=== PATIENT | female | born 1990 | race Caucasian/White ===

== ENCOUNTER → 2017-12-08 16:31 | Outpatient (CLI) | payer OTHER, SELFPAY ==
--- NOTE | 2017-12-08 16:30 | US_ITS ---
US OB Complete W/ Detail INDICATION: ANATOMY COMPARISON: None TECHNIQUE: Ultrasonographic grayscale and limited Doppler duplex investigation of the FINDINGS: There is a single live intrauterine gestation in cephalic presentation with heart rate of 149 bpm. AYANNA appears normal with the largest pocket measuring 6 x 3 cm. The placenta is located posteriorly and is not low-lying. The cervix is closed. Estimated gestational age by today's measurements is 18 weeks and 5 days (biparietal diameter 4.2 cm, head circumference 16.2 cm, abdominal circumference 13.2 cm, femur length 2.7 cm). Estimated date of delivery is May 06, 2018. Evaluation of the anatomy includes selected views of the spine, unremarkable, normal appearance of the intracranial structures, including lateral ventricles, cerebellum, and cisterna magna. A normal three-vessel cord is documented. Both arms and legs are present. The diaphragm is present. The kidneys are without evidence of hydronephrosis. There is a normal cord insertion. Stomach and urinary bladder are seen. The four-chamber heart is documented. Views of the profile with lip and nose are slightly limited due to cephalic presentation, as far as seen the face appears within normal limits. US/OB Anatomy Scan IMPRESSION: Single live intrauterine gestation with estimated gestational age of 18 weeks and 5 days. heart rate 149 bpm. Posterior placenta, not low-lying. Visualiz anatomy without evidence of anomaly. at 2057 Reported and signed by: Cony Torre MD Electronically Signed: Cony Torre MD at 19:56 EST Tel , Service support ,
== END ==
PROVIDERS: Family Provider Family Medicine; PCP Family Medicine; Visit Provider Obstetrics & Gynecology
DX: Z34.90 Encounter for supervision of normal pregnancy, unspecified, unspecified trimester (principal); Z3A.18 18 weeks gestation of pregnancy
CPT/HCPCS: 76805

== ENCOUNTER 2018-01-12 00:30 | Emergency (ER) | payer OTHER, SELFPAY ==
[2018-01-12 00:31] VITALS: BMI 26.5
--- NOTE | 2018-01-12 00:59 | ED.DCSUM_ITS ---
- ER Visit Summary Date of Service: 01/12/18 Chief Complaint: Thigh abscess History of Present Illness: The patient is a 27 F presenting for evaluation secondary to a thigh abscess. Patient states that this has been present progressively over the course of the last 3-4 days. Painful and warm. Patient states that she is getting a mild amount of drainage from this. Patient's Physician did prescribe her Keflex for this, but she has not yet started the prescription. She states that she cannot get in with her primary care physician until Tuesday, and does report that there is increasing pain associated with this. Patient is 24 weeks . Physical Examination: Physical exam unremarkable except for examination of the patient's left posterior thigh. There is approximately a 1 cm eschar with some fluctuance and surrounding induration. There is about 6 cm of surrounding erythema without any evidence of lymphangitic streaking. Remainder physical otherwise unremarkable. Test Results: None indicated Emergency Department Course and Treatment: Patient presented for evaluation secondary to a thigh abscess. I did a bedside ultrasound which did indicate that there was underlying fluctuance so incision and drainage was indicated. Patient's area was prepped with Betadine and she was draped in sterile fashion. Area was anesthetized using 10 cc of lidocaine via a field block, the patient had adequate analgesia. 11 blade was used and a cruciate incision was made over the area of greatest fluctuance. Moderate amount of fluctuance was expressed, hemostats were used to break up loculations, and the wound was copiously irrigated with saline and left open. Absorbent dressing was placed over the wound, patient was given a first dose of Keflex in the emergency department. Patient will follow up with her primary care physician. Disposition: Discharge Impression: 1. Left thigh abscess with surrounding cellulitis 2. Incision and drainage by ED physician This note was generated with [employer] dictation software. It may contain incorrect words, spelling, and punctuation that were not noted in review of the chart prior to signing ED Disposition - Plan for ED Patient: Disposition: Home or Assisted Living Chief Complaint: Abscess Diagnosis: Abscess of thigh Instructions: ED Abscess IandD Referrals: Richelle Barber DO [Primary Care Provider] - 3-5 Days Additional Instructions: Continue taking keflex
[2018-01-12 01:00] VITALS: BP 118/68; PULSE 83; RESP 16; TEMP 36.9; O2SAT 96
--- NOTE | 2018-01-12 01:05 | NURSING ---
I&D OF ABSCESS TO LEFT POSTERIOR THIGH PERFORMED BY . CONSENT OBTAINED PRIOR TO PROCEDURE. PT NUMBED WITH 1% LIDOCAINE. PROCEDURE PERFORMED WITH NO COMPLICATIONS. PT GIVEN ABX AND D/C'D
[2018-01-12] MEDS: Cephalexin 250 MG Capsule 500 MG PO (01:08)
[2018-01-12 01:10] VITALS: RESP 14
== END 2018-01-12 01:10 | disposition home or self-care (01) ==
LOC: ED 01:04
PROVIDERS: Emergency Provider Emergency Medicine; Family Provider Family Medicine; PCP Family Medicine
DX: O98.812 Other maternal infectious and parasitic diseases complicating pregnancy, second trimester (principal); L02.416 Cutaneous abscess of left lower limb; Z3A.24 24 weeks gestation of pregnancy
CPT/HCPCS: 10060; 99283

== ENCOUNTER → 2018-02-10 15:46 | Outpatient (CLI) | payer OTHER, SELFPAY ==
[2018-02-10 17:13] LABS: Absolute Lymphocyte Count 1.14 X10^3/ul (0.83-4.51); Absolute Neutrophil Count 5.3 X10^3/uL (2.0-7.7); Basophil# 0.02 X10^3/uL; Basophil% 0.3 % (0-1); Eosinophil# 0.08 X10^3/uL; Eosinophils% 1.2 % (0-5); Hematocrit 34.1 % (37-47); Hemoglobin 11.6 g/dl (12.0-15.0); Lymphocyte # 1.14 X10^3/ul (4.0); Lymphocyte % 16.5 % (19-41); Mean Corpuscular Volume 88.1 fL (81-99); Mean Platelet Vol. 10.9 fl (6.2-12.0); Monocyte# 0.35 X10^3/uL; Monocyte% 5.1 % (0-10); Neutrophil % 76.8 % (47-70); Platelet Count 186 K/mm3 (150-450); RBC Distribution Width CV 12.8 % (11.6-14.6); RBC Distribution Width SD 39.7 fl (35.1-43.9); Red Blood Count 3.87 M/mm3 (4.2-5.4); White Blood Count 6.9 K/mm3 (4.4-11.0)
[2018-02-10 17:19] LABS: POSITIVE COUNT NO; POSITIVE DIFFERENTIAL NO; POSITIVE MORPHOLOGY NO
[2018-02-10 17:25] LABS: Glucose Challenge Gest 1H 50g 183 mg/dL (70-140)
== END ==
PROVIDERS: Family Provider Family Medicine; PCP Family Medicine; Visit Provider Obstetrics & Gynecology
DX: Z34.01 Encounter for supervision of normal first pregnancy, first trimester (principal)
CPT/HCPCS: 36415; 82950; 85025; 86850; 86900

== ENCOUNTER → 2018-02-22 07:00 | Outpatient (CLI) | payer OTHER, SELFPAY ==
[2018-02-22 09:00] LABS: Glucose GTT-Gestation. Fasting 81 mg/dL (<105)
[2018-02-22 09:04] LABS: Glucose GTT-Gestational 1 Hr 193 mg/dL (<190)
[2018-02-22 10:26] LABS: Glucose GTT-Gestational 2 Hr 178 mg/dL (<165)
[2018-02-22 10:58] LABS: Glucose GTT-Gestational 3 Hr 147 L (<145)
== END ==
PROVIDERS: Family Provider Family Medicine; PCP Family Medicine; Visit Provider Obstetrics & Gynecology
DX: O99.810 Abnormal glucose complicating pregnancy (principal); Z3A.00 Weeks of gestation of pregnancy not specified
CPT/HCPCS: 36415; 82951; 82952

== ENCOUNTER → 2018-02-24 17:44 | Outpatient (CLI) | payer OTHER, SELFPAY ==
[2018-02-24 21:00] LABS: Chlamydia Trachomatis by PCR Negative (Negative); Neisserai gonorrhoeae by PCR Negative (Negative); Probe Check PASS; Sample Adequacy Control PASS; Specimen Processing Control PASS
== END ==
PROVIDERS: Visit Provider Nurse Practitioner Women's Health
DX: O09.93 Supervision of high risk pregnancy, unspecified, third trimester (principal); Z3A.00 Weeks of gestation of pregnancy not specified
CPT/HCPCS: 87491; 87591

== ENCOUNTER 2018-03-28 17:04 | Outpatient (RCR) | payer OTHER, SELFPAY | END 2018-03-28 23:59 | LOC: DC 17:04 | PROVIDERS: Family Provider Family Medicine; PCP Family Medicine; Visit Provider Obstetrics & Gynecology | DX: O24.419 Gestational diabetes mellitus in pregnancy, unspecified control (principal); Z3A.00 Weeks of gestation of pregnancy not specified; Z71.3 Dietary counseling and surveillance | CPT/HCPCS: 97802; G0108 ==

== ENCOUNTER → 2018-04-04 16:43 | Outpatient (CLI) | payer OTHER, SELFPAY ==
--- NOTE | 2018-04-04 16:40 | US_ITS ---
STUDY: SECOND AND THIRD TRIMESTER OBSTETRICAL ULTRASOUND - LIMITED REASON FOR EXAM: Female, 27 years old. Growth scan. LMP: 07/27/2017 PRIOR ULTRASOUND: None. TECHNIQUE: Transabdominal ultrasound evaluation was performed. FINDINGS: There is a single intrauterine fetus. The fetus is in a cephalic presentation. There is demonstrated cardiac activity with a heart rate of 150 bpm. There is a normal amniotic fluid volume. The largest amniotic fluid pocket measures 6.0 cm. The amniotic fluid index (AYANNA) is 11.5 cm. The placenta is posterior in location and is not low lying. There are Grade 2 placental changes. The cervix measures 1.4 cm in length. There is demonstrated V-shaped funneling of the cervical os foraminal width measures 1.5 cm in length measures 1.4 cm. BIOMETRY: BPD: 8.4 cm: 33 weeks, 5 days HC: 32.2 cm: 36 weeks, 3 days AC: 30.3 cm: 34 weeks, 2 days FL: 6.8 cm: 30 weeks, 0 days Age by LMP: 35 weeks, 6 days. ELEN by LMP: 05/03/2018. age by prior US: 34 weeks, 6 days. ELEN by prior US: 05/10/2018. Estimated weight: 2467 grams, +/- 360 grams, 19 percentile. Gender: Indeterminant US/OB Limited With Biometrics IMPRESSION: 1. Live intrauterine with estimated gestational age by ultrasound 34 weeks and 6 days with estimated date of confinement of 05/10/2018. 2. Cervical length of 1.4 cm with demonstrated funneling, recommend gynecologic monitoring this is may represent an underlying sign of cervical incompetence. Electronically Signed: Emmanuel Liang DO at 22:54 EDT , Service support ,
--- NOTE | 2018-04-04 16:43 | DT_ITS ---
This patient was seen during an EMR downtime April 03, 2018 - April 10, 2018. This patient may have a combination of paper and electronic documentation or all paper documentation. All documentation is viewable within the e-chart portion of [facility] for each patient visit.
[2018-04-07 14:23] LABS: Group B Strep DNA By PCR Negative (Negative); Internal Control PASS; Probe Check PASS; Specimen Processing Control PASS
== END ==
PROVIDERS: Family Provider Family Medicine; PCP Family Medicine; Visit Provider Obstetrics & Gynecology
DX: Z36.89 Encounter for other specified antenatal screening (principal)
CPT/HCPCS: 76816; 87081; 87653

== ENCOUNTER → 2018-04-05 08:00 | Outpatient (CLI) | payer OTHER, SELFPAY ==
--- NOTE | 2018-04-05 08:00 | DT_ITS ---
This patient was seen during an EMR downtime April 03, 2018 - April 10, 2018. This patient may have a combination of paper and electronic documentation or all paper documentation. All documentation is viewable within the e-chart portion of [facility] for each patient visit.
== END ==
PROVIDERS: Family Provider Family Medicine; PCP Family Medicine; Visit Provider Nurse Practitioner Women's Health
DX: Z34.93 Encounter for supervision of normal pregnancy, unspecified, third trimester (principal)

== ENCOUNTER 2018-04-21 10:35 | Outpatient (CLI) | payer OTHER, SELFPAY ==
[2018-04-21 11:09] LABS: Hematocrit 37.4 % (37-47); Hemoglobin 12.6 g/dl (12.0-15.0); Mean Corp Hgb Conc 33.7 g/gl (32-36); Mean Corpuscular Hgb 29.4 pg (27.0-32.0); Mean Corpuscular Volume 87.4 fL (81-99); Mean Platelet Vol. 10.4 fl (6.2-12.0); Platelet Count 147 K/mm3 (150-450); RBC Distribution Width CV 13.2 % (11.6-14.6); RBC Distribution Width SD 42.1 fl (35.1-43.9); Red Blood Count 4.28 M/mm3 (4.2-5.4)
[2018-04-21 11:10] VITALS: BMI 29.8
[2018-04-21 11:11] LABS: Scan Indicated on CBC? Y/N NO
--- NOTE | 2018-04-28 02:43 | OB.TRI.NOTE ---
History of Present Illness Date of Service: 04/21/18 Was patient seen by the physician?: No Reason For Visit: R/O LABOR Date of Service: 04/21/18 Allergies SEAFOOD Allergy (Uncoded 04/21/18 10:06) Swelling - Pertinent Past Medical History Medical History: Past Medical History (Last Reviewed 04/27/18 @ 16:09 by Peggy Mendoza) Polycystic disease, ovaries NST - FHR Rate Baby A Baseline: 125 Variability:: Moderate Accelerations:: 15 x 15 Decelerations:: None NST Reactive:: Yes FHR Category:: Category I Uterine Activity:: irregular Impression/Plan false labor reactive nst dc home
== END 2018-04-21 12:50 | disposition home or self-care (01) ==
LOC: WPOUT 10:40 → WP 10:40
PROVIDERS: Family Provider Family Medicine; PCP Family Medicine; Visit Provider Obstetrics & Gynecology
DX: O47.9 False labor, unspecified (principal); Z3A.00 Weeks of gestation of pregnancy not specified
CPT/HCPCS: 59025; 59050; 85027; 99218; G0378

== ENCOUNTER 2018-04-28 05:24 | Inpatient (IN) | payer OTHER, SELFPAY ==
[2018-04-28 03:55] VITALS: BMI 30.1
[2018-04-28 06:05] LABS: Hematocrit 38.4 % (37-47); Hemoglobin 13.3 g/dl (12.0-15.0); Mean Corp Hgb Conc 34.6 g/gl (32-36); Mean Corpuscular Volume 86.5 fL (81-99); Mean Platelet Vol. 10.7 fl (6.2-12.0); Platelet Count 194 K/mm3 (150-450); RBC Distribution Width CV 12.7 % (11.6-14.6); RBC Distribution Width SD 39.2 fl (35.1-43.9); Red Blood Count 4.44 M/mm3 (4.2-5.4); White Blood Count 11.9 K/mm3 (4.4-11.0)
[2018-04-28 06:06] LABS: Scan Indicated on CBC? Y/N NO
[2018-04-28 06:15] LABS: Bedside Glucose 98 mg/dL (70-110)
[2018-04-28] MEDS: Ondansetron 4 MG/2 ML Vial IV (06:42)
[2018-04-28] MEDS: Lactated Ringers 1,000 ML 50 ML IV ×2 (06:43→10:17)
[2018-04-28] MEDS: Nalbuphine 10 MG/ML Ampul IV (08:07)
[2018-04-28] MEDS: 0.9% Saline Lock 10 ML Syringe IV ×2 (08:15→15:00)
[2018-04-28 08:20] LABS: Bedside Glucose 120 mg/dL (70-110)
--- NOTE | 2018-04-28 08:40 | HP.PCM_ITS ---
- Problem List (1) Genital HSV Status: Acute Qualifiers: Comment: acyclovir (2) Contraception management Status: Acute Qualifiers: Comment: IUD 6 wk PP (3) Supervision of high risk in third trimester Status: Acute Comment: PRR ELEN 05/12/19 girl Elvin (4) Gestational diabetes Status: Acute Qualifiers: Comment: growth us at 36 weeks, diabetic education, start diet and testing (5) Need for rhogam due to Rh negative mother Status: Acute Comment: rhogam prn and at 28 weeks (6) screening encounter Status: Acute Comment: Normal NT reviewed by KEVAN History Date of Admission: 04/28/18 Final ELEN: 05/03/18 Gestational age: 39 Weeks and 2 Days History of this : This is a 27 year-old, G1, P0 at 39 weeks gestational age presents IAL 5 cm. she has had GDMA1 in the Medical History: Medical History (Last Reviewed 04/27/18 @ 16:09 by Peggy Mendoza) Polycystic disease, ovaries E28.2 Allergies SEAFOOD Allergy (Uncoded 04/21/18 10:06) Swelling Home Medications: Home Medications Citalopram [Celexa] 40 mg PO DAILY 12/15/15 vitamin,calcium,xpyagulb-sjcm-ndnmv acid tablet 1 tab PO QDAY 12/23/17 blood sugar diagnostic strips See Dose Instructions .ROUTE .MEDSUPPLY #100 ea blood-glucose meter See Dose Instructions .ROUTE .MEDSUPPLY #1 ea 02/23/18 Acyclovir 400 mg PO BID 04/28/18 Smoking Status: Former smoker Alcohol: None Number of Fetus(es): 1 Heart Tracinmoderate variability reactive no decels TOCO Analysis: q2-4 History Past Pregnancies: Past Pregnancies Delivery Date Name GA/Weeks Outcome Route Weight Gender Labor Length Anesthesia Delivery Location Provider FOB Labs: Mom's Labs & Results 04/28/18 04/28/18 04/28/18 05:45 05:45 05:45 WBC 11.9 H RBC 4.44 Hgb 13.3 Hct 38.4 MCV 86.5 MCH 30.0 MCHC 34.6 RDW 12.7 RDW Differential 39.2 Plt Count 194 MPV 10.7 POC Glucose Blood Type B NEGATIVE Antibody Screen TNP NEGATIVE 06/29/18 06/29/18 06:10 08:13 WBC RBC Hgb Hct MCV MCH MCHC RDW RDW Differential Plt Count MPV POC Glucose 98 120 H Blood Type Antibody Screen Course Did the patient receive Yes care? Labs Blood Type: B RH: NEGATIVE RPR/VDRL/Syphilis Nonreactive Rubella status Immune HbSAg Negative Date Done: 11/15/17 Chlamydia Negative Gonorrhea Negative HIV/AIDS Non-Reactive Group B Strep: Negative Current Obstetrical History Gestational Diabetes Yes: diet controlled Incompetent Cervix No Infertility No IUGR No Macrosomia No Hypertension/Pre-eclampsia No Placenta Previa/Abruption No PTL/PROM No Uterine anomaly No Oligohydramnios No Polyhydramnios No Multiple gestation No Past Medical History Asthma No Diabetes No Hypertension No Heart disease No Mitral valve prolapse No Neurologic/Seizure disorder/ No Migraines Kidney disease No Liver disease No Varicosities No Clotting disorders/Hx of DVT No Thyroid Dysfunction No Other medical diseases No Psychiatric disorders No Major trauma No Abnormal PAP smear No Sleep apnea No Mammogram in the last 2 years No Medications Taken During Dose/Freq.: [Clindamycin] 300 mg / TID Last Date/Time of Medication pt unsure - pt states took for 3 days before Taken: [Keflex] switched to clindamycin Last Date/Time of Medication pt unsure - states was a 10 day Taken: [Clindamycin] Reason for taking medication [ abcess on the back of left thigh Keflex] Reason for taking medication [ abcess on the back of left thigh Clindamycin] Social History Marital Status: Alleged father Elvin Hx Smoking Yes Smoking Status Former smoker Expected Infant Delivery Method: Spontaneous Vaginal Review of Systems Constitutional: Denies: Fever, Malaise Eyes: Denies: Blurred vision, Vision Change HEENT: Denies: Head Aches, Visual Changes Cardiovascular: Denies: Chest Pain, Palpitations Respiratory: Denies: Cough, Shortness of Breath, Wheezing Gastrointestinal: Denies: Abdominal Pain, Diarrhea, Nausea, Vomiting Genitourinary: Denies: Dysuria, Hematuria Musculoskeletal: Denies: Joint Pain, Muscle pain Skin: Denies: Lesions, Rash Neurological: Denies: Blurred vision, Focal weakness, Headaches Psychiatric: Denies: Anxiety, Depression Endocrine: Denies: Heat/ Cold Intolerance Hematologic/ Lymphatic: Denies: Easy Bruising, Easy Bleeding Physical Exam General: Alert, Cooperative, No apparent distress HEENT: Atraumatic, Normocephalic. Negative for: Thyromegaly, Lymphadenopathy Cardiovascular: Regular rate Lungs: Normal air movement Abdomen: Soft, Non Tender, Gravid Neurological: Deep Tendon Reflexes 2+/4 and Symmetrical, Neuro grossly intact. Negative for: Clonus [employer]: Normal external genitalia. Negative for: Vulvar lesions Estimated gestational size: Appropriate for gestational size Presentation: Cephalic Assessment/Plan All Active Problems (Last Reviewed 04/27/18 @ 16:09 by Peggy Mendoza) Genital HSV (Acute) Contraception management (Acute) Supervision of high risk in third trimester (Acute) Gestational diabetes (Acute) Segmental and somatic dysfunction of pelvic region (Acute) Segmental and somatic dysfunction of sacral region (Acute) Segmental and somatic dysfunction of lumbar region (Acute) Need for rhogam due to Rh negative mother (Acute) screening encounter (Acute) Abnormal glucose affecting (Resolved) Supervision of normal (Resolved) This is a 27 year-old, at 39 weeks gestational age IAL plan exp management gdma1- q 1 hour blood sugars gbs neg hsv positive no active lesions, has been on suppression
[2018-04-28 09:36] LABS: Bedside Glucose 116 mg/dL (70-110)
[2018-04-28] MEDS: proMETHazine 25 MG/ML Syringe IV (09:46)
[2018-04-28] MEDS: fentaNYL-bupivacaine (epidural) 100 ML BAG EPIDURAL (10:25)
[2018-04-28 10:51] LABS: Bedside Glucose 130 mg/dL (70-110)
[2018-04-28 11:51] LABS: Bedside Glucose 123 mg/dL (70-110)
[2018-04-28 12:45] LABS: Bedside Glucose 129 mg/dL (70-110)
[2018-04-28] MEDS: Oxytocin 30 units/NS 500 ml 30 UNITS/500 ML IV.SOLN 334 UNITS IV (13:26)
--- NOTE | 2018-04-28 13:33 | PCM.OB.VAG ---
- Problem List (1) Genital HSV Status: Acute Qualifiers: Comment: acyclovir (2) Contraception management Status: Acute Qualifiers: Comment: IUD 6 wk PP (3) Supervision of high risk in third trimester Status: Acute Comment: PRR ELEN 05/03/19 girl Elvin (4) Gestational diabetes Status: Acute Qualifiers: Comment: growth us at 36 weeks, diabetic education, start diet and testing (5) Need for rhogam due to Rh negative mother Status: Acute Comment: rhogam prn and at 28 weeks (6) screening encounter Status: Acute Comment: Normal NT reviewed by KEVAN Vaginal Delivery Maternal Presentation: Active Labor IAL Amniotic Membrane Rupture Type: Artificial Amniotic Fluid Description: Clear Final ELEN: 05/03/18 Gestational age: 39 Weeks and 2 Days Date of Procedure: 04/28/18 Pre-Operative Diagnosis: ial Post-Operative Diagnosis: same Surgery/ Procedure Performed: Spontaneous Vaginal Delivery Type of Anesthesia: Epidural Description of Procedure: Patient began pushing and delivered the head in the OSMANI presentation. The head was delivered atraumatically and a loose nuchal cord ?1 was identified and easily reduced over the infant's head. The anterior and posterior shoulders delivered without complication followed by the rest of the and the was placed on the maternal abdomen. Delayed cord clamping was employed for approximately 60 seconds. Cord was clamped and cut and gentle traction was applied to the cord and the placenta delivered spontaneously immediately following it was noted to be intact with three-vessel cord. The perineum and vagina were inspected and noted to have no laceration. EBL was 200 cc. Patient and infant tolerated delivery well. Presentation: PETRA Placental Delivery Description: Spontaneous Placenta Disposition: [facility]
[2018-04-28] MEDS: Oxytocin 30 units/NS 500 ml 30 UNITS/500 ML IV.SOLN 167 UNITS IV (13:56)
[2018-04-28 15:16] LABS: Bedside Glucose 124 mg/dL (70-110)
[2018-04-28 20:42] VITALS: BP 106/63; PULSE 87; RESP 18; TEMP 36; O2SAT 97
[2018-04-29 00:50] VITALS: BP 118/75; PULSE 92; RESP 16; TEMP 35.9; O2SAT 98
[2018-04-29] MEDS: Naproxen 250 MG Tablet PO (03:16)
[2018-04-29 05:00] VITALS: BP 114/67; PULSE 94; RESP 18; TEMP 36; O2SAT 96
[2018-04-29 08:00] VITALS: BP 109/69; PULSE 78; RESP 16; TEMP 36.7; O2SAT 100
[2018-04-29 08:56] LABS: Bedside Glucose 85 mg/dL (70-110)
[2018-04-29] MEDS: Citalopram 40 MG TABLET PO (10:16)
[2018-04-29 13:00] VITALS: BP 119/70; PULSE 79; RESP 17; TEMP 36.7; O2SAT 98
[2018-04-29 21:35] VITALS: BP 111/61; PULSE 87; RESP 16; TEMP 36.1
[2018-04-29] MEDS: Senna/Docusate Sodium 1 Tablet PO (21:42)
--- NOTE | 2018-04-30 01:26 | PCM.PN.OB ---
Subjective: later entry- patient seen 04/29 at 8:40 doing well no CP SOB N V tolerating po - Physical Exam General: Alert, Oriented x3 Vital Signs Temp Pulse Resp BP Pulse Ox 96.9 F L 87 16 111/61 98 04/29/18 21:35 04/29/18 21:35 04/29/18 21:35 04/29/18 21:35 04/29/18 13:00 Oxygen Delivery Method Room Air Weight: 164 lb 12.8 oz Body Mass Index (BMI) 30.1 Intake and Output for Last 24 Hours 04/28/18 04/29/18 04/30/18 23:59 23:59 23:59 Output Total 1150 / 1150 Balance -1150 / -1150 POC Glucose 04/29/18 08:46 POC Glucose 85 Medical Necessity - Tobacco Use Smoking Status: Former smoker Assessment/Plan All Active Problems (Last Reviewed 04/27/18 @ 16:09 by Peggy Mendoza) Genital HSV (Acute) Contraception management (Acute) Supervision of high risk in third trimester (Acute) Gestational diabetes (Acute) Need for rhogam due to Rh negative mother (Acute) screening encounter (Acute) Abnormal glucose affecting (Resolved) Segmental and somatic dysfunction of lumbar region (Resolved) Segmental and somatic dysfunction of pelvic region (Resolved) Segmental and somatic dysfunction of sacral region (Resolved) Supervision of normal (Resolved) s/p routine care gdma1 FBS WNL
[2018-04-30 02:40] VITALS: BP 117/74; PULSE 72; RESP 16; TEMP 35.9
--- NOTE | 2018-04-30 06:44 | PCM.PN.OB ---
Subjective: doing well no complaints - Physical Exam General: Alert, Oriented x3 Vital Signs Temp Pulse Resp BP Pulse Ox 96.7 F L 72 16 117/74 98 04/30/18 02:40 04/30/18 02:40 04/30/18 02:40 04/30/18 02:40 04/29/18 13:00 Oxygen Delivery Method Room Air Weight: 164 lb 12.8 oz Body Mass Index (BMI) 30.1 Intake and Output for Last 24 Hours 04/28/18 04/29/18 04/30/18 23:59 23:59 23:59 Output Total 1150 / 1150 Balance -1150 / -1150 POC Glucose 04/29/18 08:46 POC Glucose 85 Medical Necessity - Tobacco Use Smoking Status: Former smoker Assessment/Plan All Active Problems (Last Reviewed 04/27/18 @ 16:09 by Peggy Mendoza) Genital HSV (Acute) Contraception management (Acute) Supervision of high risk in third trimester (Acute) Gestational diabetes (Acute) Need for rhogam due to Rh negative mother (Acute) screening encounter (Acute) Abnormal glucose affecting (Resolved) Segmental and somatic dysfunction of lumbar region (Resolved) Segmental and somatic dysfunction of pelvic region (Resolved) Segmental and somatic dysfunction of sacral region (Resolved) Supervision of normal (Resolved) s/p routine care gdma1 dc home
--- NOTE | 2018-04-30 06:44 | PCM.DCVAG ---
Discharge Diet: No Restrictions Discharge Activity: Return to Normal Activity, May not drive while taking narcotic pain medications., May Shower May resume sexual activity in: 4-6 weeks Call your doctor if your incision/area has: Continuous Slow Oozing, Sudden Increased Bleeding, Increased Pain/ Swelling, Increased Redness, Foul Smelling Discharge Additional Instructions: If you experience any of the following, contact your healthcare provider. Bleeding that soaks a pad every hour for 2 hours Fever 100.4 or higher Unrelieved incision or abdominal pain Swelling, redness, discharge or bleeding from your incision or episiotomy site Your incision begins to separate Problems urinating (including inability to urinate or burning while urinating). Visual changes Severe headache Flu-like symptoms Pain or redness in one of both of your breasts Pain, warmth, tenderness or swelling in your legs, especially the calf area Frequent nausea and vomiting Symptoms of depression or anxiety If you experience any of the following, call 911 or go to the nearest Emergency Room. Chest pain Problems breathing Seizure activity Partial or complete paralysis of a body part, slurred speech, weakness or drooping of the face, or a sudden inability to walk or hold your balance Allergies/Adverse Reactions: Allergies SEAFOOD Allergy (Uncoded 04/21/18 10:06) Swelling Medications to take at Discharge Citalopram [Celexa] 40 mg PO DAILY 12/15/15 vitamin,calcium,wzplwgsz-blzu-blhlr acid tablet 1 tab PO QDAY 12/23/17 blood sugar diagnostic strips See Dose Instructions .ROUTE .MEDSUPPLY #100 ea 02/23/18 blood-glucose meter See Dose Instructions .ROUTE .MEDSUPPLY #1 ea 02/23/18 Acyclovir 400 mg PO BID 04/28/18 Please Follow Up With: Tahira Vasquez MD - [phone] When: Call to make an appointment with your doctor in 6 weeks. If you had elevated Blood pressure or 4th degree laceration you will need to be seen in 2 weeks. Primary Care Physician: Richelle Barber DO [Primary Care Provider] -
--- NOTE | 2018-04-30 06:45 | DCINST_ITS ---
Discharge Diet: No Restrictions Discharge Activity: Return to Normal Activity, May not drive while taking narcotic pain medications., May Shower May resume sexual activity in: 4-6 weeks Call your doctor if your incision/area has: Continuous Slow Oozing, Sudden Increased Bleeding, Increased Pain/ Swelling, Increased Redness, Foul Smelling Discharge Additional Instructions: If you experience any of the following, contact your healthcare provider. * Bleeding that soaks a pad every hour for 2 hours * Fever 100.4 or higher * Unrelieved incision or abdominal pain * Swelling, redness, discharge or bleeding from your incision or episiotomy site * Your incision begins to separate * Problems urinating (including inability to urinate or burning while urinating) . * Visual changes * Severe headache * Flu-like symptoms * Pain or redness in one of both of your breasts * Pain, warmth, tenderness or swelling in your legs, especially the calf area * Frequent nausea and vomiting * Symptoms of depression or anxiety If you experience any of the following, call 911 or go to the nearest Emergency Room. * Chest pain * Problems breathing * Seizure activity * Partial or complete paralysis of a body part, slurred speech, weakness or drooping of the face, or a sudden inability to walk or hold your balance Allergies/Adverse Reactions: Allergies SEAFOOD Allergy (Uncoded 04/21/18 10:06) Swelling Medications to take at Discharge Citalopram [Celexa] 40 mg PO DAILY 12/15/15 vitamin,calcium,qindiqed-vjpl-kgxco acid tablet 1 tab PO QDAY 12/23/17 blood sugar diagnostic strips See Dose Instructions .ROUTE .MEDSUPPLY #100 ea blood-glucose meter See Dose Instructions .ROUTE .MEDSUPPLY #1 ea 02/23/18 Acyclovir 400 mg PO BID 04/28/18 Please Follow Up With: Tahira Vasquez MD - [phone] When: Call to make an appointment with your doctor in 6 weeks. If you had elevated Blood pressure or 4th degree laceration you will need to be seen in 2 weeks. Primary Care Physician: Richelle Barber DO [Primary Care Provider] -
--- NOTE | 2018-04-30 07:30 | NURSING ---
report given to Amy CROWLEY
[2018-04-30 08:30] VITALS: BP 112/71; PULSE 84; RESP 16; TEMP 36.9; O2SAT 96
[2018-04-30 08:43] VITALS: BP 112/71; PULSE 84; RESP 16; TEMP 36.9; O2SAT 96
== END 2018-04-30 08:45 | disposition home or self-care (01) | DRG 774 ==
LOC: WPOUT 05:30
PROVIDERS: Admitting Provider Obstetrics & Gynecology; Family Provider Family Medicine; PCP Family Medicine; Visit Provider Obstetrics & Gynecology
DX: O24.429 Gestational diabetes mellitus in childbirth, unspecified control (principal); O98.32 Other infections with a predominantly sexual mode of transmission complicating childbirth; O69.81X0 Labor and delivery complicated by cord around neck, without compression, not applicable or unspecified; A60.00 Herpesviral infection of urogenital system, unspecified; M99.03 Segmental and somatic dysfunction of lumbar region; M99.04 Segmental and somatic dysfunction of sacral region; M99.05 Segmental and somatic dysfunction of pelvic region; E28.2 Polycystic ovarian syndrome; Z87.891 Personal history of nicotine dependence; Z91.013 Allergy to seafood; Z3A.39 39 weeks gestation of pregnancy; Z37.0 Single live birth
CPT/HCPCS: 59025; 59050; 82962; 85027; 86850; 86900; 99218; J7120; A4216; G0378; J2405

== ENCOUNTER → 2019-08-24 17:01 | Outpatient (CLI) | payer OTHER, SELFPAY ==
[2019-08-24 14:19] VITALS: BMI 28.0
[2019-08-30 15:20] LABS: HPV APTIMA, High Risk Negative (Negative)
== END ==
PROVIDERS: Family Provider Family Medicine; PCP Family Medicine; Referring Provider Obstetrics & Gynecology; Visit Provider Obstetrics & Gynecology
DX: Z12.4 Encounter for screening for malignant neoplasm of cervix (principal)
CPT/HCPCS: 87624; 88175; G0145

== ENCOUNTER → 2020-10-04 12:38 | Outpatient (CLI) | payer OTHER, SELFPAY | PROVIDERS: PCP Family Medicine; Visit Provider Physician Assistant Medical | DX: Z11.59 Encounter for screening for other viral diseases (principal) | CPT/HCPCS: 87426 ==

== ENCOUNTER → 2020-10-28 12:44 | Outpatient (CLI) | payer OTHER, SELFPAY ==
[2020-10-28 08:55] VITALS: BMI 22.4
[2020-11-01 09:57] LABS: HPV APTIMA, High Risk Negative (Negative)
== END ==
PROVIDERS: PCP Family Medicine; Visit Provider Nurse Practitioner Women's Health
DX: Z12.4 Encounter for screening for malignant neoplasm of cervix (principal)
CPT/HCPCS: 87624; 88175; G0145

== ENCOUNTER → 2021-01-22 12:15 | Outpatient (CLI) | payer OTHER, SELFPAY ==
[2020-10-28 08:55] VITALS: BMI 22.4
[2021-01-22 14:22] LABS: hCG Titer Quant., Serum 125 mIU/mL (1-3)
== END ==
PROVIDERS: PCP Family Medicine; Referring Provider Nurse Practitioner Women's Health; Visit Provider Nurse Practitioner Women's Health
DX: N91.2 Amenorrhea, unspecified (principal)
CPT/HCPCS: 36415; 84702

== ENCOUNTER → 2021-01-24 11:50 | Outpatient (CLI) | payer OTHER, SELFPAY ==
[2020-10-28 08:55] VITALS: BMI 22.4
[2021-01-24 13:05] LABS: hCG Titer Quant., Serum 191 mIU/mL (1-3)
== END ==
PROVIDERS: PCP Family Medicine; Referring Provider Nurse Practitioner Women's Health; Visit Provider Nurse Practitioner Women's Health
DX: N91.2 Amenorrhea, unspecified (principal)
CPT/HCPCS: 36415; 84702

== ENCOUNTER → 2021-01-26 12:10 | Outpatient (CLI) | payer OTHER, SELFPAY ==
[2020-10-28 08:55] VITALS: BMI 22.4
[2021-01-26 14:14] LABS: hCG Titer Quant., Serum 311 mIU/mL (1-3)
== END ==
PROVIDERS: PCP Family Medicine; Referring Provider Nurse Practitioner Women's Health; Visit Provider Nurse Practitioner Women's Health
DX: Z34.90 Encounter for supervision of normal pregnancy, unspecified, unspecified trimester (principal)
CPT/HCPCS: 36415; 84702

== ENCOUNTER → 2021-01-28 11:59 | Outpatient (CLI) | payer OTHER, SELFPAY ==
[2020-10-28 08:55] VITALS: BMI 22.4
[2021-01-28 13:06] LABS: hCG Titer Quant., Serum 754 mIU/mL (1-3)
== END ==
PROVIDERS: PCP Family Medicine; Referring Provider Nurse Practitioner Women's Health; Visit Provider Nurse Practitioner Women's Health
DX: Z34.90 Encounter for supervision of normal pregnancy, unspecified, unspecified trimester (principal)
CPT/HCPCS: 36415; 84702

== ENCOUNTER → 2021-02-25 12:02 | Outpatient (CLI) | payer OTHER, SELFPAY ==
[2021-02-25 10:14] VITALS: BMI 23.1
[2021-02-25 12:34] LABS: Amphetamine Urine VISTA NEGATIVE (<1000 ng/mL); Barbiturate Urine VISTA NEGATIVE (< 200 ng/mL); Benzodiazepine Urine VISTA NEGATIVE (< 200 ng/mL); Cocaine Urine VISTA NEGATIVE (< 300 ng/mL); Ecstacy Urine VISTA NEGATIVE (< 500 ng/mL); Methadone Urine VISTA NEGATIVE (< 300 ng/mL); PCP Urine VISTA NEGATIVE (< 25 ng/mL); THC Urine VISTA NEGATIVE (< 50 ng/mL); Vista UDS pH Range 7
[2021-02-27 04:08] LABS: Chlamydia By Nucleic Acid AMP Negative (Negative)
[2021-02-27 12:53] LABS: Gonococcus By Nucleic Acid AMP Negative (Negative)
== END ==
PROVIDERS: PCP Family Medicine; Referring Provider Obstetrics & Gynecology; Visit Provider Obstetrics & Gynecology
DX: Z34.80 Encounter for supervision of other normal pregnancy, unspecified trimester (principal)
CPT/HCPCS: 80307; 87086; 87088; 87491; 87591

== ENCOUNTER → 2021-03-09 07:27 | Outpatient (CLI) | payer OTHER, SELFPAY ==
[2021-02-25 10:14] VITALS: BMI 23.1
[2021-03-09 07:55] LABS: Absolute Lymphocyte Count 1.99 X10^3/uL (0.83-4.51); Basophil# 0.05 X10^3/uL; Basophil% 0.6 % (0-1); Eosinophils% 1.3 % (0-5); Hematocrit 40.1 % (37-47); Hemoglobin 13.6 g/dL (12.0-15.0); Lymphocyte # 1.99 X10^3/ul (0.83-4.51); Lymphocyte % 25.5 % (19-41); Mean Corp Hgb Conc 33.9 g/dL (32-36); Mean Corpuscular Hgb 30.3 pg (27.0-32.0); Mean Corpuscular Volume 89.3 fL (81-99); Mean Platelet Vol. 10.2 fl (6.2-12.0); Monocyte# 0.66 X10^3/uL; Monocyte% 8.5 % (0-10); NRBC Flagged by Analyzer 0 % (0-5); Neutrophil # 4.96 X10^3/uL (2.7-7.7); Neutrophil % 63.7 % (47-70); Platelet Count 210 K/mm3 (150-450); RBC Distribution Width CV 12.4 % (11.6-14.6); RBC Distribution Width SD 40.4 fl (35.1-43.9); Red Blood Count 4.49 M/mm3 (4.2-5.4); White Blood Count 7.8 K/mm3 (4.4-11.0)
[2021-03-09 08:14] LABS: Glucose Challenge Gest 1H 50g 111 mg/dL (70-140)
[2021-03-09 08:40] LABS: NATERA MAILED SPECIMEN
[2021-03-09 09:14] LABS: HIV - WCH Non-Reactive (Nonreactive); Hepatitis B Surface Antigen Non-Reactive (Nonreactive); Hepatitis C Antibody Non-Reactive (Nonreactive); Rubella IgG Reactive (Nonreactive); Syphilis Antibodies Non-reactive
== END ==
PROVIDERS: PCP Family Medicine; Referring Provider Obstetrics & Gynecology; Visit Provider Obstetrics & Gynecology
DX: Z34.81 Encounter for supervision of other normal pregnancy, first trimester (principal)
CPT/HCPCS: 82950; 85025; 86703; 86762; 86780; 86803; 86850; 86900; 86901; 87340

== ENCOUNTER → 2021-05-06 07:55 | Outpatient (CLI) | payer OTHER, SELFPAY ==
[2021-02-25 10:14] VITALS: BMI 23.1
[2021-04-20 08:06] VITALS: BMI 23.1
--- NOTE | 2021-05-06 07:56 | US_ITS ---
STUDY: SECOND AND THIRD TRIMESTER OBSTETRICAL ULTRASOUND REASON FOR EXAM: Female, 30 years old anatomy scan LMP: 12/22/2020. TECHNIQUE: Transabdominal and Transvaginal TECHNICAL QUALITY: Adequate. PRIOR ULTRASOUND: None. FINDINGS: There is a single intrauterine fetus. The fetus is in a cephalic presentation. There is demonstrated cardiac activity with a heart rate of 144 bpm. There is a normal amniotic fluid volume. The largest amniotic fluid pocket measures 7.8 cm x 2.9 cm. The amniotic fluid index (AYANNA) is within normal limits. The placenta is fundal and posterior in location. There are Grade 0 placental changes. The cervix measures 3.6 cm in length. The bilateral adnexal regions are normal. BIOMETRY: BPD: 4.3 cm: 19 weeks, 0 days HC: 16.12 cm: 18 weeks, 6 days AC: 13.86 cm: 19 weeks, 1 days FL: 2.7 cm: 18 weeks, 1 days CI: 78% FL/BPD: 63% FL/HC: FL/AC: 19% HC/AC: 1.16 age by current US: 18 weeks, 5 days. ELEN by current US: 10/02/2021. Estimated weight: 260 grams, +/- 39 grams, 22 %. Age by LMP: 19 weeks, 2 days. ELEN by LMP: 09/28/2021. ANATOMY: Gender: Female Cranium: Normal lateral ventricles. Normal choroid plexus. Normal cerebellum. Normal cisterna magna. Normal face, nose and lips. Chest: Normal 4-chamber heart. Abdomen/Pelvis: Normal diaphragm. Normal stomach. Normal abdominal wall. Normal cord insertion. Normal 3 vessel cord. Normal kidneys. Normal bladder. Spine: Normal cervical spine. Normal thoracic spine. Normal lumbar spine. Normal sacrum. Extremities: Normal bilateral upper extremities. Normal bilateral lower extremities. IMPRESSION: Single live uterine gestation with a mean gestational age of 18 weeks and 5 days. Electronically Signed: Pierce Woodard MD at 10:59 EDT , Service support , STUDY: FIRST TRIMESTER OBSTETRICAL ULTRASOUND REASON FOR EXAM: Female, 30 years old. Cervical length measurement. TECHNIQUE: Transvaginal TECHNICAL QUALITY: Adequate. PRIOR ULTRASOUND: None. FINDINGS: The cervical length measures 3.6 cm. US/OB Anatomy Scan IMPRESSION: Cervical length measures 3.6 cm. Electronically Signed: Pierce Woodard MD at 11:00 EDT , Service support ,
== END ==
PROVIDERS: PCP Family Medicine; Referring Provider Obstetrics & Gynecology; Visit Provider Obstetrics & Gynecology
DX: Z34.80 Encounter for supervision of other normal pregnancy, unspecified trimester (principal); Z3A.18 18 weeks gestation of pregnancy
CPT/HCPCS: 76805; 76817

== ENCOUNTER → 2021-07-07 08:40 | Outpatient (CLI) | payer OTHER, SELFPAY ==
[2021-07-07 09:34] LABS: Absolute Lymphocyte Count 1.64 X10^3/uL (0.83-4.51); Absolute Neutrophil Count 4.7 X10^3/uL (2.0-7.7); Basophil# 0.04 X10^3/uL; Basophil% 0.6 % (0-1); Eosinophil# 0.11 X10^3/uL; Eosinophils% 1.5 % (0-5); Hematocrit 36.5 % (37-47); Hemoglobin 12.3 g/dL (12.0-15.0); Lymphocyte # 1.64 X10^3/ul (0.83-4.51); Lymphocyte % 22.8 % (19-41); Mean Corp Hgb Conc 33.7 g/dL (32-36); Mean Corpuscular Hgb 30.1 pg (27.0-32.0); Mean Corpuscular Volume 89.5 fL (81-99); Mean Platelet Vol. 9.9 fl (6.2-12.0); Monocyte# 0.64 X10^3/uL; Monocyte% 8.9 % (0-10); NRBC Flagged by Analyzer 0 % (0-5); Neutrophil % 65.5 % (47-70); Platelet Count 190 K/mm3 (150-450); RBC Distribution Width CV 12.9 % (11.6-14.6); RBC Distribution Width SD 42.3 fl (35.1-43.9); Red Blood Count 4.08 M/mm3 (4.2-5.4); White Blood Count 7.2 K/mm3 (4.4-11.0)
== END ==
PROVIDERS: PCP Family Medicine; Referring Provider Nurse Practitioner Women's Health; Visit Provider Nurse Practitioner Women's Health
DX: Z34.92 Encounter for supervision of normal pregnancy, unspecified, second trimester (principal); Z3A.25 25 weeks gestation of pregnancy
CPT/HCPCS: 36415; 85025; 86850; 86900; 86901

== ENCOUNTER 2021-07-27 18:53 | Emergency (ER) | payer OTHER, SELFPAY ==
[2021-07-27 18:53] VITALS: BP 131/75; PULSE 126; RESP 20; TEMP 36.6; O2SAT 94; BMI 28.3
--- NOTE | 2021-07-27 19:06 | EKG12_ITS ---
Test Reason : CP Blood Pressure : / mmHG Vent. Rate : 108 BPM Atrial Rate : 108 BPM P-R Int : 124 ms QRS Dur : 088 ms QT Int : 350 ms P-R-T Axes : 036 054 034 degrees QTc Int : 469 ms Sinus tachycardia Otherwise normal ECG Confirmed by MILES LEWIS, HIREN ([id number]), video tape editor MAGDALENA CUEVA ([id number]) on 07/29/2021 11:35:39 AM Referred By: AMAN Confirmed By:HIREN AQUINO MD
--- NOTE | 2021-07-27 19:08 | EX.ED.DYSGE1 ---
HPI History of Present Illness Chief Complaint: General Illness Informant: patient Onset/Context/Timing Onset: Weeks Context: Gradual Onset Timing: Intermittent Current Severity: Mild Maximum Severity: Mild Narrative Narrative: 31-year-old female G2, P1 currently 31 weeks . States that she has had some shortness of breath the last 2 weeks. The last 2 days she has had sore throat and mild headache and viral type of symptoms. She has a nonproductive cough. She denies any hemoptysis. She is never had a DVT or PE. Her risk factors would include her current and recent travel to and from [place] about a month ago. She denies any calf pain. She denies any chest pain. Patient was vaccinated for Covid several months ago. Prior similar symptoms: No Recent Illness/Hospitalization: No PFSH PFS Medical History Acne Genital HSV History of tetanus, diphtheria, and acellular pertussis booster vaccination (Tdap) Polycystic disease, ovaries Home Medications citalopram 40 mg PO DAILY 12/15/15 [History Last Taken 04/27/18 08:00] multivitamin no.47-iron fum 27 mg-folate no.1 1 mg-dha 300 mg capsule cap PO 02/17/21 [History Last Taken Unknown] ramelteon 8 mg tablet 8 mg PO QHS 02/17/21 [History Last Taken Unknown] mometasone 0.1 % topical ointment 1 applic TOPICAL DAILY #45 g 03/23/21 [Rx Last Taken Unknown] Allergy/AdvReac Type Severity Reaction Status Date / Time cephalexin [From Keflex] Allergy unknown Verified 07/27/21 18:57 SEAFOOD Allergy Swelling Uncoded 07/27/21 18:57 Social History adopted: No household members: family housing: house number of children: 1 current occupational status: employed current occupation: - [employer] Smoking Status: Former smoker second hand exposure: No alcohol intake: never substance use type: does not use seatbelt use: always do you feel safe at home: Yes additional social history: 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 Sore throat. Shortness of breath. Review of Systems ROS Unobtainable: Denies due to encephalopathy Constitutional Constitutional ED: Reports chills; Denies fever(s) Eyes Eyes: Denies change in vision ENT ENT ED: Reports sore throat; Denies ear pain Cardiovascular Cardiovascular: Denies chest pain Respiratory/Chest Respiratory/Chest: Reports cough and dyspnea Gastrointestinal Gastrointestinal: Denies abdominal pain, diarrhea, nausea or vomiting Genitourinary Genitourinary ED: Denies dysuria Musculoskeletal Musculoskeletal: Denies myalgias Integumentary Denies rash Neurologic Neurologic: Denies headache(s) Psychiatric Psychiatric: Denies depression Endocrine Endocrinology: Denies polyuria Allergic/Immunologic Allergic/Immunologic ED: Denies urticaria EXAM Physical Exam Narrative Exam Narrative: 31-year-old female vital signs blood pressure 131/75 pulse ox 94% on room air no hypoxia as she is tachycardic at 126 afebrile. She does not look septic or toxic. HEENT exam normal. Moist remembers. Neck nontender no lymphadenopathy. No JVD. Lungs clear to auscultation bilaterally. Heart tachycardic rate at 120 no murmur. Abdomen soft nontender. No peritoneal signs. Gravid nontender uterus. Moving all 4 extremities. Trace edema both lower extremities. Neurologically she is awake alert with no focal motor deficits. Const Vital Signs: 07/27/21 18:53 07/27/21 19:22 07/27/21 19:31 Temperature 97.8 F 97.8 F Temperature Source Temporal Temporal Pulse Rate 126 H 120 H Respiratory Rate 20 H 22 H Respiratory Effort Short of Breath Blood Pressure 131/75 H 109/79 Blood Pressure Mean 93 89 Pulse Ox 94 98 Oxygen Delivery Method Room Air Room Air 07/27/21 21:25 Temperature Temperature Source Pulse Rate 110 H Respiratory Rate 16 Respiratory Effort Blood Pressure Blood Pressure Mean Pulse Ox Oxygen Delivery Method Positive well nourished and well developed; Negative for obese, cachectic, contractures or unkempt General Appearance ED: well developed and NAD; Negative for unkempt, cachectic, contractures, cyanotic or diaphoretic Nutritional Appearance: Negative for cachectic or obese HEENT Reports moist mucous membranes Negative for trauma or tenderness Eyes PERRL and EOMs intact bilaterally Neck no lymphadenopathy, supple and no JVD General: Negative for tenderness Chest Wall inspection of chest normal and palpation of chest normal Resp normal respiratory effort and clear to auscultation bilaterally Effort and Inspection: Negative for pain with movement Auscultation: Negative for rales, rhonchi or wheezes Cardio regular rhythm, S1 normal heart sound, S2 normal heart sound and no murmurs Rate: tachycardic GI normal to inspection, nondistended, normoactive bowel sounds, non-tender, non-distended and no masses GI Narrative: Gravid uterus. Inspection: Negative for abdominal distention Auscultation: normoactive bowel sounds Palpation: soft; Negative for tender, guarding or rebound tenderness present Back/Spine no CVA tenderness General Back: Negative for CVA tenderness Extremity normal to inspection General Extremety ED: Yes edema; Negative for tenderness General Extremity: edema Neuro oriented x3 and CN's II-XII intact bilaterally Sensorium / Orientation: alert; Negative for orientation impaired, lethargic or stuporous Motor Exam: strength 5/5 throughout Psych mental status grossly normal Appearance: Negative for unkempt Attitude: No agitated Mood & Affect: Negative for depressed or tearful Skin no rashes or lesions noted and no wounds MDM MDM MDM Narrative Medical decision making narrative: 31-year-old female 31 weeks with shortness of breath and URI symptoms. Was Covid vaccinated. Does have gestational diabetes. Undergo work-up including labs, chest x-ray and D-dimer. Multiple exams patient is doing well at 9:30 PM. Her heart rates come down she is feeling improved. She was treated with IV fluids. She had not discussed all of her test results. The only thing pending is her PCR Covid test. It would not change her disposition she will be discharged home. Lab Data Attestation: I reviewed the patient's lab results. Lab results narrative: CBC shows a white 11.7. Hemoglobin 12.6. Electrolytes show a gap of 7 normal creatinine. Glucose 100. D-dimer is elevated 1.9 for a CTA is being obtained of the chest. Chest x-ray and CTA of the chest are unremarkable. Labs: Laboratory Results - last 24 hr 07/27/21 07/27/21 07/27/21 19:02 19:02 19:02 WBC 11.7 H RBC 4.16 L Hgb 12.6 Hct 37.1 MCV 89.2 MCH 30.3 MCHC 34.0 RDW Std Deviation 41.9 RDW Coeff of Chacha 12.8 Plt Count 191 MPV 10.1 Immature Gran % (Auto) 0.500 Neut % (Auto) 82.0 H Lymph % (Auto) 9.2 L [place] % (Auto) 7.6 Eos % (Auto) 0.4 Baso % (Auto) 0.3 Absolute Neuts (auto) 9.6 H Absolute Lymphs (auto) 1.08 Nucleated RBC % 0 D-Dimer Quant (PE/DVT) 1.94 H* Sodium 138 Potassium 3.5 Chloride 109 H Carbon Dioxide 22.0 Anion Gap 7 BUN 5 L Creatinine 0.45 L Estim Creat Clear Calc 140.64 Est GFR (MDRD) Af Amer 207 Est GFR (MDRD) Non-Af 171 BUN/Creatinine Ratio 11.2 Glucose 100 Calcium 8.7 Radiography Chest X-Ray - ED: 1 View, Read by ED Physician, Normal, Heart, Lungs, Mediastinum, Bony Structures and No Acute Disease Diagnostic Testing: Radiology Impression Chest X-Ray 07/27/21 19:18 IMPRESSION: Normal x-ray examination of the chest. Electronically Signed: Jimmy No DO at 19:58 EDT Tel [phone], Service support , Chest CTA 07/27/21 19:54 IMPRESSION: Normal CTA chest examination, without a demonstrated pulmonary embolism or arterial dissection. Electronically Signed: Jimmy No DO at 21:05 EDT Tel [phone], Service support , Portable chest x-ray single view interpreted by myself shows no acute abnormality. No infiltrates. No fluid. Rhythm Strip Rhythm Strip: Sinus Tach Rate: 108 Ectopy: None EKG Initial EKG: Attestation: I personally reviewed and interpreted this EKG as follows: Interpretation: Sinus Rhythm, No Acute Injury Pattern and Sinus Tachycardia Comments: Sinus tachycardia rate of 108 no acute signs of SD or ischemia. Prior EKG tracings: not available for review Discharge Plan Triage Chief Complaint: General Illness ED Provider: Lester Finch Dx/Rx/DC Orders Clinical Impression: , Viral syndrome Instructions: ED Viral Syndrome (Adult) Prescriptions: No Action PNV-DHA 27 mg iron-1 mg -300 mg capsule PO RF: 0 ramelteon 8 mg tablet 8 mg PO QHS RF: 0 mometasone 0.1 % ointment 1 applic topical DAILY Qty: 45 RF: 3 citalopram 40 MG tablet 40 mg PO DAILY RF: 0 Primary Care Provider: Da Link Referrals: Da Link [Primary Care Provider] - 3-5 Days if not improving Activity Restrictions/Additional Instructions: Plenty of fluids and rest. Tylenol as needed. 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 Your test looked well. Your chest x-ray and CT of your chest showed no infiltrates and no PE. Your PCR Covid test is still pending. Disposition Disposition: Home, Self Care
[2021-07-27 19:15] LABS: Absolute Lymphocyte Count 1.08 X10^3/uL (0.83-4.51); Absolute Neutrophil Count 9.6 X10^3/uL (2.0-7.7); Basophil# 0.04 X10^3/uL; Basophil% 0.3 % (0-1); Eosinophil# 0.05 X10^3/uL; Eosinophils% 0.4 % (0-5); Hematocrit 37.1 % (37-47); Hemoglobin 12.6 g/dL (12.0-15.0); Lymphocyte # 1.08 X10^3/ul (0.83-4.51); Lymphocyte % 9.2 % (19-41); Mean Corpuscular Hgb 30.3 pg (27.0-32.0); Mean Corpuscular Volume 89.2 fL (81-99); Mean Platelet Vol. 10.1 fl (6.2-12.0); Monocyte# 0.89 X10^3/uL; Monocyte% 7.6 % (0-10); NRBC Flagged by Analyzer 0 % (0-5); Neutrophil # 9.58 X10^3/uL (2.7-7.7); Platelet Count 191 K/mm3 (150-450); RBC Distribution Width CV 12.8 % (11.6-14.6); RBC Distribution Width SD 41.9 fl (35.1-43.9); Red Blood Count 4.16 M/mm3 (4.2-5.4); White Blood Count 11.7 K/mm3 (4.4-11.0)
--- NOTE | 2021-07-27 19:18 | RAD_ITS ---
STUDY: X-RAY CHEST REASON FOR EXAM: Female, 31 years old. Chest pain, Shield abd TECHNIQUE: Frontal view COMPARISON: None. FINDINGS: The lungs are clear and expanded. There is no demonstrated pleural abnormality. Normal size heart. Normal mediastinum and darrell. Normal visualized pulmonary arteries. Normal visualized aortic arch and descending thoracic aorta. Normal visualized thoracic spine. Normal visualized ribs, clavicles, and shoulders. There is no demonstrated abnormality of the visualized soft tissue structures of the upper abdomen. RAD/Chest 1 View (Portable) IMPRESSION: Normal x-ray examination of the chest. Electronically Signed: Jimmy No DO at 19:58 EDT Tel [phone], Service support ,
[2021-07-27 19:22] VITALS: BP 109/79; PULSE 120; RESP 22; TEMP 36.6; O2SAT 98
[2021-07-27 19:29] LABS: Anion Gap 7 (5-15); BUN 5 mg/dL (7-18); BUN/Creat Ratio 11.2 RATIO (10-20); Calcium,Total 8.7 mg/dL (8.5-10.1); Chloride 109 mmol/L (98-107); Creatinine, Serum 0.45 mg/dL (0.55-1.02); EST Glomerular Filtration Rate 171 mL/min (>60); Est Glom Filt Rate - Afr Amer 207 mL/min (>60); Estimated Creatinine Clearance 140.64 ml/min; Glucose 100 mg/dL (74-106); Potassium 3.5 mmol/L (3.5-5.1); Sodium Level 138 mmol/L (136-145)
[2021-07-27] MEDS: 0.9% Normal Saline 1,000 ML 1000 ML IV (19:31)
[2021-07-27 19:41] LABS: D-Dimer Quantitative (DVT/PE) 1.94 FEU/ug/m (0.27-0.49)
--- NOTE | 2021-07-27 19:54 | CT_ITS ---
STUDY: CTA CHEST REASON FOR EXAM: Female, 31 years old. dyspnea. . Elevated d-dimer RADIATION DOSAGE (If Supplied By Facility): CTDIvol = ( 10.61 ) mGy, DLP = ( 272.27 ) mGycm TECHNIQUE: The examination was performed with the intravenous administration of IV 100mL [id number]-370. Post-processing of the angiographic images was performed, with multiplanar reformation and 3D reconstruction. Individualized dose optimization techniques were used for this CT. COMPARISON: None. FINDINGS: Normal enhancement of the main pulmonary artery and right and left pulmonary arteries. Normal enhancement of the bilateral peripheral pulmonary arteries. There is no demonstrated pulmonary embolism. Normal thoracic aorta and visualized great vessels. There is no demonstrated aortic dissection. Normal heart and pericardium. Normal mediastinum. Normal hilar regions. Normal visualized trachea and bronchi. The lungs are well expanded. Normal pulmonary parenchyma. Normal pleura. Normal chest wall structures. Normal osseous structures. Normal visualized upper abdomen. CT/CTA Chest W/WO Contrast IMPRESSION: Normal CTA chest examination, without a demonstrated pulmonary embolism or arterial dissection. Electronically Signed: Jimmy No DO at 21:05 EDT Tel [phone], Service support ,
[2021-07-27 21:25] VITALS: PULSE 110; RESP 16
== END 2021-07-27 22:03 | disposition home or self-care (01) ==
PROVIDERS: Emergency Provider Emergency Medicine; PCP Family Medicine
DX: O98.513 Other viral diseases complicating pregnancy, third trimester (principal); B34.9 Viral infection, unspecified; E28.2 Polycystic ovarian syndrome; Z3A.31 31 weeks gestation of pregnancy; Z79.51 Long term (current) use of inhaled steroids; Z87.891 Personal history of nicotine dependence
CPT/HCPCS: 71045; 71275; 80048; 85025; 85379; 87635; 93005; 96360; 99284; J7030; Q9967; U0005; A4216; U0003

== ENCOUNTER → 2021-08-03 09:12 | Outpatient (CLI) | payer OTHER, SELFPAY ==
--- NOTE | 2021-08-03 09:14 | US_ITS ---
INDICATION: non reactive NST EXAMINATION: Ultrasound US Biophysical Profile W/O Nonst TECHNIQUE: Transabdominal pelvic ultrasound was performed. COMPARISON: 05/06/2021. LMP: 12/22/2020. Beta-hCG: Unknown. Provided EGA: None. FINDINGS: INTRAUTERINE GESTATION(s): Single. ESTIMATED GESTATIONAL AGE: 32 weeks ESTIMATED DUE DATE (ELEN): 09/28/2021 HEART MOTION is 148 bpm. AMNIOTIC FLUID INDEX (AYANNA): 10.26 BIOPHYSICAL PROFILE (BPP): 06/07 -- Breathin/2. -- Movement: 2/2. -- Tone: 2/2. --AYANNA: 2/2. PRESENTATION: Cephalic PLACENTA: Fundal. There is no placenta previa or abruption. CERVIX: The cervix is closed. MATERNAL OVARIES: No adnexal masses. FREE FLUID: None. US/Biophysical Prof W/O Non Stres IMPRESSION: Single live intrauterine with heart rate of 148 bpm. Amniotic fluid index (AYANNA): 10.26 Biophysical profile (BPP): 06/07 Electronically Signed: Kwaku Robert MD at 12:14 EDT Tel , Service support ,
== END ==
PROVIDERS: PCP Family Medicine; Referring Provider Obstetrics & Gynecology; Visit Provider Obstetrics & Gynecology
DX: O24.419 Gestational diabetes mellitus in pregnancy, unspecified control (principal); O28.8 Other abnormal findings on antenatal screening of mother; Z3A.00 Weeks of gestation of pregnancy not specified
CPT/HCPCS: 76819

== ENCOUNTER → 2021-08-05 09:59 | Outpatient (CLI) | payer OTHER, SELFPAY ==
--- NOTE | 2021-08-05 10:01 | US_ITS ---
STUDY: SECOND AND THIRD TRIMESTER OBSTETRICAL ULTRASOUND - LIMITED REASON FOR EXAM: Female, 31 years old routine survey LMP: 12/22/2020 PRIOR ULTRASOUND: 08/03/2021 TECHNIQUE: Transabdominal TECHNICAL QUALITY: Adequate. FINDINGS: There is a single intrauterine fetus. The fetus is in a cephalic presentation. There is demonstrated cardiac activity with a heart rate of 139 bpm. There is a normal amniotic fluid volume. The largest amniotic fluid pocket measures 4.6 x 2.7 cm. The amniotic fluid index (AYANNA) is 13.22 cm. The placenta is fundal and right lateral, not low-lying There are Grade 1 placental changes. The cervix measures 3.7 cm in length. BIOMETRY: BPD: 8.2 cm: 33 weeks, 0 days HC: 30.4 cm: 33 weeks, 6 days AC: 28.4 cm: 32 weeks, 3 days FL: 5.9 cm: 30 weeks, 4 days Age by LMP: 32 weeks, 2 days. ELEN by LMP: 09/28/2021. age by prior US: 31 weeks, 5 days. ELEN by prior US: 10/02/2021. age by current US: 32 weeks, 4 days. ELEN by current US: 09/26/2021. Estimated weight: 1889 grams, +/- 276 grams, 32 percentile. US/OB Limited With Biometrics IMPRESSION: Single live intrauterine of 32 weeks, 4 days by current ultrasound with ELEN of 09/26/2021. Heart rate at 139 bpm. No suspicious sonographic findings, normal growth noted since the previous study Electronically Signed: Adolfo Kincaid MD at 12:32 EDT , Service support ,
== END ==
PROVIDERS: PCP Family Medicine; Referring Provider Obstetrics & Gynecology; Visit Provider Obstetrics & Gynecology
DX: O24.419 Gestational diabetes mellitus in pregnancy, unspecified control (principal); Z3A.32 32 weeks gestation of pregnancy
CPT/HCPCS: 76816

== ENCOUNTER → 2021-08-18 | Outpatient (CLI) | payer OTHER, SELFPAY | END | disposition home or self-care (01) | LOC: LABSPEC 16:07 | PROVIDERS: PCP Family Medicine; Referring Provider Nurse Practitioner Women's Health; Visit Provider Nurse Practitioner Women's Health | DX: O26.899 Other specified pregnancy related conditions, unspecified trimester (principal); R10.2 Pelvic and perineal pain; Z3A.00 Weeks of gestation of pregnancy not specified | CPT/HCPCS: 87086; 87088 ==

== ENCOUNTER → 2021-08-31 11:26 | Outpatient (CLI) | payer OTHER, SELFPAY | PROVIDERS: PCP Family Medicine; Referring Provider Obstetrics & Gynecology; Visit Provider Obstetrics & Gynecology | DX: O24.414 Gestational diabetes mellitus in pregnancy, insulin controlled (principal); Z3A.00 Weeks of gestation of pregnancy not specified | CPT/HCPCS: 87081 ==

== ENCOUNTER → 2021-09-02 08:41 | Outpatient (CLI) | payer OTHER, SELFPAY ==
--- NOTE | 2021-09-02 08:47 | US_ITS ---
STUDY: SECOND AND THIRD TRIMESTER OBSTETRICAL ULTRASOUND - LIMITED REASON FOR EXAM: Female, 31 years old routine survey LMP: 12/22/2020 PRIOR ULTRASOUND: 08/05/2021 TECHNIQUE: Transabdominal TECHNICAL QUALITY: Adequate. FINDINGS: There is a single intrauterine fetus. The fetus is in a cephalic presentation. There is demonstrated cardiac activity with a heart rate of 123 bpm. There is a normal amniotic fluid volume. The largest amniotic fluid pocket measures 5.7 cm. The amniotic fluid index (AYANNA) is 16 cm. The placenta is right lateral and fundal, not low-lying There are Grade 2 placental changes. The cervix measures 3.7 cm in length. BIOMETRY: BPD: 8.7 cm: 35 weeks, 2 days HC: 31.6 cm: 35 weeks, 3 days AC: 32.0 cm: 35 weeks, 6 days FL: 6.5 cm: 33 weeks, 3 days Age by LMP: 36 weeks, 2 days. ELEN by LMP: 09/28/2021. age by prior US: 36 weeks, 4 days. ELEN by prior US: 09/26/2021. age by current US: 35 weeks, 1 days. ELEN by current US: 10/07/2021. Estimated weight: 2644 grams, +/- 397 grams, 27 percentile. US/OB Limited With Biometrics IMPRESSION: Single live intrauterine of 35 weeks, 1 day by current study with ELEN of 10/07/2021. No suspicious sonographic findings. However, EGD on current study measures approximately 12 days later than on the previous study Electronically Signed: Adolfo Kincaid MD at 8:51 EDT , Service support ,
== END ==
PROVIDERS: PCP Family Medicine; Referring Provider Obstetrics & Gynecology; Visit Provider Obstetrics & Gynecology
DX: O24.419 Gestational diabetes mellitus in pregnancy, unspecified control (principal); Z3A.00 Weeks of gestation of pregnancy not specified
CPT/HCPCS: 76816

== ENCOUNTER 2021-09-21 06:50 | Inpatient (IN) | payer OTHER, SELFPAY ==
[2021-09-21] VITALS (38 sets, daily range): BP systolic 92–113; BP diastolic 53–73; PULSE 74–100; RESP 18; TEMP 36.3–37.7; O2SAT 94–100; BMI 29.6
--- NOTE | 2021-09-21 07:51 | HP.PCM.OB_ITS ---
HPI - General General Date of Admission: 09/21/21 HPI Narrative CHRISTELLE BERRY, is a 31 F who presents for IOL secondary to gestational diabetes. Maternal Data Information ELEN Calculator 2 Estimated Delivery Date Method Current WG Current Estimate 09/28/21 Ultrasound #1 39w 0d Other Estimates 08/03/21 LMP (Uncertain) 47w 0d PFSH PFSH Medical History Acne Genital HSV History of tetanus, diphtheria, and acellular pertussis booster vaccination (Tdap) Polycystic disease, ovaries Home Medications citalopram 40 mg PO DAILY 12/15/15 [History Last Taken 09/20/21 10:00] multivitamin no.47-iron fum 27 mg-folate no.1 1 mg-dha 300 mg capsule 1 cap PO DAILY 02/17/21 [History Last Taken 09/20/21 20:00] insulin degludec 100 unit/mL (3 mL) subcutaneous pen 10 unit SUBCUT DAILY 08/03/21 [History Last Taken 09/20/21 20:00] acyclovir 400 mg PO BID 09/21/21 [History Last Taken 09/21/21 07:00] mometasone 1 applic TOPICAL DAILY 09/21/21 [History Last Taken 09/20/21 10:00] Allergy/AdvReac Type Severity Reaction Status Date / Time cephalexin [From Keflex] Allergy unknown Verified 09/16/21 08:36 SEAFOOD Allergy Swelling Uncoded 09/16/21 08:36 Social History adopted: No household members: family housing: house number of children: 1 current occupational status: employed 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 Date Name GA/Weeks Outcome Route Bth Weight Infant Gen Labor Lgth Anesthesia Del Locatn Provider FOB 04/28/18 Camdyn 39 live - full term 6lbs 3oz Female 12 hours epidural [facility] KEVAN Elvin Delivery Date: 04/28/18 GDMA KellyPeggy Visit Details Expected Delivery Route/Plan Labor Preferences- CB/BF classes: no labor support person: Elvin labor intervention preferences: none specified pain management options preferred: epidural cut cord/dad catch: yes : yes PP control planned: IUD discussed possible routes of delivery and associated risks: [] special requests: [] Plans covid status: past infection, and vaccinated flu vaccine: 07/20 tdap vaccine: given rhogam: given 07/07 LARC form signed: yes movement and labor precautions reviewed. Problem list reviewed and updated with the most current plan of care details and appropriate orders placed. Relevant counseling for the gestational age provided. Continue routine care and follow up unless otherwise noted in visit notes/problem list details OB Flowsheet Initial Weight: 125 lb Date -?-?-?-?-?-?-?-?-?-?-?-?- EGA Weight BP Urine Prot -?-?-?-?-?-?-?-?-?-?-?-?- Glucose FHR FuHt Pres Dilation -?-?-?-?-?-?-?-?-?-?-?-?- Effaced St Visit Note 02/25/21 -?-?-?-?-?-?-?-?-?-?-?-?- 9w 2d 126 lb 2 oz (+1 lb 2 oz) 120/70 -?-?-?-?-?-?-?-?-?-?-?-?- 163 -?-?-?-?-?-?-?-?-?-?-?-?- GP - CRL 23mm co nsistent ELEN 09/28/21 03/23/21 -?-?-?-?-?-?-?-?-?-?-?-?- 13w 0d 133 lb (+8 lb) 132/84 Negative -?-?-?-?-?-?-?-?-?-?-?-?- Negative 145 -?-?-?-?-?-?-?-?-?-?-?-?- Sm- no vb crampi ng 04/20/21 -?-?-?-?-?-?-?-?-?-?-?-?- 17w 0d 139 lb (+14 lb) 98/56 Negative -?-?-?-?-?-?-?-?-?-?-?-?- Negative 140 -?-?-?-?-?-?-?-?-?-?-?-?- SM- no vb crampi ng 05/18/21 -?-?-?-?-?-?-?-?-?-?-?-?- 21w 0d 142 lb 6 oz (+17 lb 6 oz) 104/60 Negative -?-?-?-?-?-?-?-?-?-?-?-?- Negative 145 -?-?-?-?-?-?-?-?-?-?-?-?- GP - no ctx, LOF , VB, DFM. Anatomy nl. Having a girl! 06/15/21 -?-?-?-?-?-?-?-?-?-?-?-?- 25w 0d 147 lb (+22 lb) 110/70 Negative -?-?-?-?-?-?-?-?-?-?-?-?- Negative 135 25 -?-?-?-?-?-?-?-?-?-?-?-?- SM- no vb lof go od fm no regular ctx some elevated BS so checking 07/07/21 -?-?-?-?-?-?-?-?-?-?-?-?- 28w 1d 152 lb 4 oz (+27 lb 4 oz) 108/62 Negative -?-?-?-?-?-?-?-?-?-?-?-?- Negative 148 27 -?-?-?-?-?-?-?-?-?-?-?-?- MH-No VB, LOF. C BC and T&S today. Tdap given. Will RTO for rhogam. Plans 3hr GTT since prior GDM 07/20/21 -?-?-?-?-?-?-?-?-?-?-?-?- 30w 0d 154 lb (+29 lb) 110/78 Negative -?-?-?-?-?-?-?-?-?-?-?-?- Negative 140 30 -?-?-?-?-?-?-?-?-?-?-?-?- SM- no vb lof go od fm no reuglar ctx BS well controlled with diet 08/03/21 -?-?-?-?-?-?-?-?-?-?-?-?- 32w 0d 153 lb (+28 lb) 122/80 -?-?-?-?-?-?-?-?-?-?-?-?- 140 32 -?-?-?-?--?-?-?-?-?-?-?-?- SM- no vb lof go od fm no regular ctx. she is having horrible URI symptoms and was evaluated for a PE and has had two negative covid tests. discussed OTC jatinder and steroid pack if needed, caitlin haji ordered 08/05/21 -?-?-?-?-?-?-?-?-?-?-?-?- 32w 2d 153 lb (+28 lb) 102/66 -?-?-?-?-?-?-?-?-?-?-?-?- 140 -?-?-?-?-?-?-?-?-?-?-?-?- -NST only reac tive. Medrol dose pack due to continued resp sx 08/12/21 -?-?-?-?-?-?-?-?-?-?-?-?- 33w 2d 116/62 -?-?-?-?-?-?-?-?-?-?-?-?- 130 -?-?-?-?-?-?-?-?-?-?-?-?- MH-NST only reac tive 08/14/21 -?-?-?-?-?-?-?-?-?-?-?-?- 33w 4d 154 lb (+29 lb) 100/64 Negative -?-?-?-?-?-?-?-?-?-?-?-?- Negative 130 -?-?-?-?-?-?-?-?-?-?-?-?- SM- no vb lof go od fm no regular ctx BS reveiwed 08/17/21 -?-?-?-?-?-?-?-?-?-?-?-?- 34w 0d 156 lb 2 oz (+31 lb 2 oz) Negative -?-?-?-?-?-?-?-?-?-?-?-?- Negative -?-?-?-?-?-?-?-?-?-?-?-?- 08/18/21 -?-?-?-?-?-?-?-?-?-?-?-?- 34w 1d 156 lb (+31 lb) Trace -?-?-?-?-?-?-?-?-?-?-?-?- Negative 0 -?-?-?-?-?-?-?-?-?-?-?-?- MH-work in for d ysuria. UA with significant blood. No blood in vagina. Macrobid Rx and culture pending 08/19/21 -?-?-?-?-?-?-?-?-?-?-?-?- 34w 2d 156 lb (+31 lb) 110/82 Negative -?-?-?-?-?-?-?-?-?-?-?-?- Negative 130 -?-?-?-?-?-?-?-?-?-?-?-?- MH-Reactive NST only 08/24/21 -?-?-?-?-?-?-?-?-?-?-?-?- 35w 0d 156 lb (+31 lb) 110/62 Negative -?-?-?-?-?-?-?-?-?-?-?-?- Negative -?-?-?-?-?-?-?-?-?-?-?-?- MH-NST only reac tive 08/26/21 -?-?-?-?-?-?-?-?-?-?-?-?- 35w 2d 157 lb (+32 lb) 105/67 Negative -?-?-?-?-?-?-?-?-?-?-?-?- Negative 150 -?-?-?-?-?-?-?-?-?-?-?-?- -NST only reac tive 08/31/21 -?-?-?-?-?-?-?-?-?-?-?-?- 36w 0d 158 lb (+33 lb) 112/68 Negative -?-?-?-?-?-?-?-?-?-?-?-?- Negative 140 -?-?-?-?-?-?-?-?-?-?-?-?- SM- no vb lof go od fm no regular ctx gbs done 09/02/21 -?-?-?-?-?-?-?-?-?-?-?-?- 36w 2d 159 lb (+34 lb) 114/76 Negative -?-?-?-?-?-?-?-?-?-?-?-?- Negative 140 -?-?-?-?-?-?-?-?-?-?-?-?- -NST only reac tive 09/07/21 -?-?-?-?-?-?-?-?-?-?-?-?- 37w 0d 158 lb (+33 lb) 110/66 Negative -?-?-?-?-?-?-?-?-?-?-?-?- Negative 140 -?-?-?-?-?-?-?-?-?-?-?-?- Sm- no vb lof go od fm regular ctx 09/11/21 -?-?-?-?-?-?-?-?-?-?-?-?- 37w 4d 160 lb (+35 lb) 100/74 Negative -?-?-?-?-?-?-?-?-?-?-?-?- Negative 135 Cephalic 2 -?-?-?-?-?-?-?--?-?-?-?-?- 80 -2 JV- no lof , vaginal bleeding, or dec fm. diabetes well controlled with insulin and monitored by endo. 39 week IOL set up 09/14/21 -?-?-?-?-?-?-?-?-?-?-?-?- 38w 0d 162 lb (+37 lb) Negative -?-?-?-?-?-?-?-?-?-?-?-?- Negative -?-?-?-?-?-?-?-?-?-?-?-?- 09/16/21 -?-?-?-?-?-?-?-?-?-?-?-?- 38w 2d 162 lb (+37 lb) 100/67 Negative -?-?-?-?-?-?-?-?-?-?-?-?- Negative 140 Cephalic 3 -?-?--?-?-?-?-?-?-?-?-?-?- 80 -2 MH-reactiv e NST. More irreg CTX-membranes swept. Induction planned 09/21 0700 09/21/21 -?-?-?-?-?-?-?-?-?-?-?-?- 39w 0d 162 lb 0.2 oz (+37 lb 0.2 oz) 107/63 -?-?-?-?-?-?-?-?-?-?-?-?- -?-?-?-?-?-?-?-?-?-?-?-?- NST FHR Rate Baby A Baseline: 130 Variability:: Moderate Accelerations:: 15 x 15 Decelerations:: None NST Reactive:: Yes FHR Category:: Category I Uterine Activity:: irregular ROS Constitutional Constitutional: Reports systems reviewed and no addt'l complaints, except as documented Eyes Eyes: Denies change in vision ENT HEENT: Reports systems reviewed and no addt'l complaints, except as documented; Denies headache(s) Cardiovascular Cardiovascular: Reports systems reviewed and no addt'l complaints, except as documented; Denies chest pain or dyspnea Respiratory/Chest Respiratory/Chest: Reports systems reviewed and no addt'l complaints, except as documented Gastrointestinal Gastrointestinal: Reports systems reviewed and no addt'l complaints, except as documented; Denies abdominal pain Genitourinary Genitourinary: Reports systems reviewed and no addt'l complaints, except as documented, contractions Details: present (irregular) and movement Details: present; Denies dysuria or genital lesions Musculoskeletal Musculoskeletal: Reports systems reviewed and no addt'l complaints, except as documented Neurologic Neurologic: Reports systems reviewed and no addt'l complaints, except as docume nted Endocrine Endocrinology: Reports systems reviewed and no addt'l complaints, except as documented Vital Signs Vital Signs Vital Signs: 09/21/21 07:43 Pulse Rate 94 Blood Pressure 107/63 BP Systolic 107 BP Diastolic 63 Weight Weight: 162 lb 0.2 oz Body Mass Index (BMI) 29.6 Physical Exam Const alert, oriented x3, no apparent distress and healthy appearing HEENT normocephalic and moist oral mucous membranes Head and Scalp: atraumatic Neck full ROM, no lymphadenopathy, supple and thyroid normal General: trachea midline Lymph Lymphatic: no lymphadenopathy noted Chest inspection of chest normal Resp normal respiratory effort Cardio regular rate GI normal to inspection, nondistended, normoactive bowel sounds, soft to palpation and non-tender Inspection: gravid external exam normal Manual OB Exam: estimated gestational size appropriate, presentation cephalic, dilated, effaced and station Extremity normal to inspection General Extremity: Negative for edema Skin no rashes or lesions noted Neuro no focal motor deficits and deep tendon reflexes 2+ bilaterally Motor Exam: strength 5/5 throughout and clonus absent Psych mental status grossly normal Labs Labs Labs: Blood Type B NEGATIVE Antibody Screen NEGATIVE Hct 37.1 % (37-47) Hgb 12.6 g/dL (12.0-15.0) Pap Smear Negative Obstetrics US Syphilis Total Ab Non-reactive Rubella IgG Antibody Reactive (Nonreactive) Hep Bs Antigen Non-Reactive (Nonreactive) Neisseria gonorrhoeae DNA (MARCELO) Negative (Negative) HIV 1&2 Antibody Non-Reactive (Nonreactive) C.trachomatis DNA (PCR) Negative (Negative) Glucose 1 Hr 50 gm 111 mg/dL (70-140) Group B Strep DNA Negative (Negative) Assessment & Plan (1) Genital HSV: QUALIFIERS: Herpes simplex infection site: unspecified Qualified Code(s): A60.00 - Herpesviral infection of urogenital system, unspecified COMMENT: no outbreaks >1 yr; needs Valtrex starting at 36 weeks (2) ASCUS of cervix with negative high risk HPV: COMMENT: repeat pap as indicated (3) : QUALIFIERS: Weeks of gestation: 38 weeks Qualified Code(s): Z3A.38 - 38 weeks gestation of COMMENT: declines carrier, low risk, declined afp. NL ANATOMY. GBS neg (4) Supervision of other normal : COMMENT: PRR ELEN 09/28/21 girl Maureen PC: Riky Spouse: Elvin (5) Rh negative status during : QUALIFIERS: Trimester: first trimester Qualified Code(s): O26.891 - Other specified related conditions, first trimester; Z67.91 - Unspecified blood type, Rh negative COMMENT: B neg; Rhogam PRN, 28 weeks and PP rhogam 07/07/21 (6) Gestational diabetes mellitus (GDM): QUALIFIERS: Gestational diabetes mellitus control: insulin- controlled Trimester: third trimester Qualified Code(s): O24.414 - Gestational diabetes mellitus in , insulin controlled COMMENT: BS q 4 hr in latent phase, q 1 hr in active phase. insulin controlled, sees endocrine. 2x weekly NSTs and growth US q 4 weeks. (7) UTI in : COMMENT: Rx macrobid (8) Encounter for induction of labor: COMMENT: Pit IOL, Epi PRN, AROM PRN
--- NOTE | 2021-09-21 07:51 | PCM.HP.OB ---
HPI - General General Date of Admission: 09/21/21 HPI Narrative CHRISTELLE BERRY, is a 31 F who presents for IOL secondary to gestational diabetes. Maternal Data Information ELEN Calculator Estimated Delivery Date Method Current WG Current Estimate 09/28/21 Ultrasound #1 39w 0d Other Estimates 08/03/21 LMP (Uncertain) 47w 0d PFSH PFS Medical History Acne Genital HSV History of tetanus, diphtheria, and acellular pertussis booster vaccination (Tdap) Polycystic disease, ovaries Home Medications citalopram 40 mg PO DAILY 12/15/15 [History Last Taken 09/20/21 10:00] multivitamin no.47-iron fum 27 mg-folate no.1 1 mg-dha 300 mg capsule 1 cap PO DAILY 02/17/21 [History Last Taken 09/20/21 20:00] insulin degludec 100 unit/mL (3 mL) subcutaneous pen 10 unit SUBCUT DAILY 08/03/21 [History Last Taken 09/20/21 20:00] acyclovir 400 mg PO BID 09/21/21 [History Last Taken 09/21/21 07:00] mometasone 1 applic TOPICAL DAILY 09/21/21 [History Last Taken 09/20/21 10:00] Allergy/AdvReac Type Severity Reaction Status Date / Time cephalexin [From Keflex] Allergy unknown Verified 09/16/21 08:36 SEAFOOD Allergy Swelling Uncoded 09/16/21 08:36 Social History adopted: No household members: family housing: house number of children: 1 current occupational status: employed 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 Date Name GA/Weeks Outcome Route Bth Weight Gen Labor Lgth Anesthesia Del Locatn Provider FOB 04/28/18 Camdyn 39 live - full term 6lbs 3oz Female 12 hours epidural [facility] K[facility]AN Elvin Delivery Date: 04/28/18 GDMAbel ChoekatelynPeggy Visit Details Expected Delivery Route/Plan Labor Preferences- CB/BF classes: no labor support person: Elvin labor intervention preferences: none specified pain management options preferred: epidural cut cord/dad catch: yes : yes PP control planned: IUD discussed possible routes of delivery and associated risks: [] special requests: [] Plans covid status: past infection, and vaccinated flu vaccine: 07/20 tdap vaccine: given rhogam: given 07/07 LARC form signed: yes movement and labor precautions reviewed. Problem list reviewed and updated with the most current plan of care details and appropriate orders placed. Relevant counseling for the gestational age provided. Continue routine care and follow up unless otherwise noted in visit notes/problem list details OB Flowsheet Initial Weight: 125 lb Date <del>?</del> EGA Weight BP Urine Prot <del>?</del> Glucose FHR FuHt Pres Dilation <del>?</del> Effaced St Visit Note 02/25/21 <del>?</del> 9w 2d 126 lb 2 oz (+1 lb 2 oz) 120/70 <del>?</del> 163 <del>?</del> GP - CRL 23mm consistent ELEN 09/28/21 03/23/21 <del>?</del> 13w 0d 133 lb (+8 lb) 132/84 Negative <del>?</del> Negative 145 <del>?</del> Sm- no vb cramping 04/20/21 <del>?</del> 17w 0d 139 lb (+14 lb) 98/56 Negative <del>?</del> Negative 140 <del>?</del> SM- no vb cramping 05/18/21 <del>?</del> 21w 0d 142 lb 6 oz (+17 lb 6 oz) 104/60 Negative <del>?</del> Negative 145 <del>?</del> GP - no ctx, LOF, VB, DFM. Anatomy nl. Having a girl! 06/15/21 <del>?</del> 25w 0d 147 lb (+22 lb) 110/70 Negative <del>?</del> Negative 135 25 <del>?</del> SM- no vb lof good fm no regular ctx some elevated BS so checking 07/07/21 <del>?</del> 28w 1d 152 lb 4 oz (+27 lb 4 oz) 108/62 Negative <del>?</del> Negative 148 27 <del>?</del> MH-No VB, LOF. CBC and T&S today. Tdap given. Will RTO for rhogam. Plans 3hr GTT since prior GDM 07/20/21 <del>?</del> 30w 0d 154 lb (+29 lb) 110/78 Negative <del>?</del> Negative 140 30 <del>?</del> SM- no vb lof good fm no reuglar ctx BS well controlled with diet 08/03/21 <del>?</del> 32w 0d 153 lb (+28 lb) 122/80 <del>?</del> 140 32 <del>?</del> SM- no vb lof good fm no regular ctx. she is having horrible URI symptoms and was evaluated for a PE and has had two negative covid tests. discussed OTC jatinder and steroid pack if needed, caitlin haji ordered 08/05/21 <del>?</del> 32w 2d 153 lb (+28 lb) 102/66 <del>?</del> 140 <del>?</del> MH-NST only reactive. Medrol dose pack due to continued resp sx 08/12/21 <del>?</del> 33w 2d 116/62 <del>?</del> 130 <del>?</del> MH-NST only reactive 08/14/21 <del>?</del> 33w 4d 154 lb (+29 lb) 100/64 Negative <del>?</del> Negative 130 <del>?</del> SM- no vb lof good fm no regular ctx BS reveiwed 08/17/21 <del>?</del> 34w 0d 156 lb 2 oz (+31 lb 2 oz) Negative <del>?</del> Negative <del>?</del> 08/18/21 <del>?</del> 34w 1d 156 lb (+31 lb) Trace <del>?</del> Negative 0 <del>?</del> -work in for dysuria. UA with significant blood. No blood in vagina. Macrobid Rx and culture pending 08/19/21 <del>?</del> 34w 2d 156 lb (+31 lb) 110/82 Negative <del>?</del> Negative 130 <del>?</del> MH-Reactive NST only 08/24/21 <del>?</del> 35w 0d 156 lb (+31 lb) 110/62 Negative <del>?</del> Negative <del>?</del> MH-NST only reactive 08/26/21 <del>?</del> 35w 2d 157 lb (+32 lb) 105/67 Negative <del>?</del> Negative 150 <del>?</del> MH-NST only reactive 08/31/21 <del>?</del> 36w 0d 158 lb (+33 lb) 112/68 Negative <del>?</del> Negative 140 <del>?</del> SM- no vb lof good fm no regular ctx gbs done 09/02/21 <del>?</del> 36w 2d 159 lb (+34 lb) 114/76 Negative <del>?</del> Negative 140 <del>?</del> MH-NST only reactive 09/07/21 <del>?</del> 37w 0d 158 lb (+33 lb) 110/66 Negative <del>?</del> Negative 140 <del>?</del> Sm- no vb lof good fm regular ctx 09/11/21 <del>?</del> 37w 4d 160 lb (+35 lb) 100/74 Negative <del>?</del> Negative 135 Cephalic 2 <del>?</del> 80 -2 JV- no lof, vaginal bleeding, or dec fm. diabetes well controlled with insulin and monitored by endo. 39 week IOL set up 09/14/21 <del>?</del> 38w 0d 162 lb (+37 lb) Negative <del>?</del> Negative <del>?</del> 09/16/21 <del>?</del> 38w 2d 162 lb (+37 lb) 100/67 Negative <del>?</del> Negative 140 Cephalic 3 <del>?</del> 80 -2 MH-reactive NST. More irreg CTX-membranes swept. Induction planned 09/21 0700 09/21/21 <del>?</del> 39w 0d 162 lb 0.2 oz (+37 lb 0.2 oz) 107/63 <del>?</del> <del>?</del> NST FHR Rate Baby A Baseline: 130 Variability:: Moderate Accelerations:: 15 x 15 Decelerations:: None NST Reactive:: Yes FHR Category:: Category I Uterine Activity:: irregular ROS Constitutional Constitutional: Reports systems reviewed and no addt'l complaints, except as documented Eyes Eyes: Denies change in vision ENT HEENT: Reports systems reviewed and no addt'l complaints, except as documented; Denies headache(s) Cardiovascular Cardiovascular: Reports systems reviewed and no addt'l complaints, except as documented; Denies chest pain or dyspnea Respiratory/Chest Respiratory/Chest: Reports systems reviewed and no addt'l complaints, except as documented Gastrointestinal Gastrointestinal: Reports systems reviewed and no addt'l complaints, except as documented; Denies abdominal pain Genitourinary Genitourinary: Reports systems reviewed and no addt'l complaints, except as documented, contractions Details: present (irregular) and movement Details: present; Denies dysuria or genital lesions Musculoskeletal Musculoskeletal: Reports systems reviewed and no addt'l complaints, except as documented Neurologic Neurologic: Reports systems reviewed and no addt'l complaints, except as documented Endocrine Endocrinology: Reports systems reviewed and no addt'l complaints, except as documented Vital Signs Vital Signs Vital Signs: 09/21/21 07:43 Pulse Rate 94 Blood Pressure 107/63 BP Systolic 107 BP Diastolic 63 Weight Weight: 162 lb 0.2 oz Body Mass Index (BMI) 29.6 Physical Exam Const alert, oriented x3, no apparent distress and healthy appearing HEENT normocephalic and moist oral mucous membranes Head and Scalp: atraumatic Neck full ROM, no lymphadenopathy, supple and thyroid normal General: trachea midline Lymph Lymphatic: no lymphadenopathy noted Chest inspection of chest normal Resp normal respiratory effort Cardio regular rate GI normal to inspection, nondistended, normoactive bowel sounds, soft to palpation and non-tender Inspection: gravid external exam normal Manual OB Exam: estimated gestational size appropriate, presentation cephalic, dilated, effaced and station Extremity normal to inspection General Extremity: Negative for edema Skin no rashes or lesions noted Neuro no focal motor deficits and deep tendon reflexes 2+ bilaterally Motor Exam: strength 5/5 throughout and clonus absent Psych mental status grossly normal Labs Labs Labs: Blood Type B NEGATIVE Antibody Screen NEGATIVE Hct 37.1 % (37-47) Hgb 12.6 g/dL (12.0-15.0) Pap Smear Negative Obstetrics US Syphilis Total Ab Non-reactive Rubella IgG Antibody Reactive (Nonreactive) Hep Bs Antigen Non-Reactive (Nonreactive) Neisseria gonorrhoeae DNA (MARCELO) Negative (Negative) HIV 1&2 Antibody Non-Reactive (Nonreactive) C.trachomatis DNA (PCR) Negative (Negative) Glucose 1 Hr 50 gm 111 mg/dL (70-140) Group B Strep DNA Negative (Negative) Assessment & Plan (1) Genital HSV: QUALIFIERS: Herpes simplex infection site: unspecified Qualified Code(s): A60.00 - Herpesviral infection of urogenital system, unspecified COMMENT: no outbreaks >1 yr; needs Valtrex starting at 36 weeks (2) ASCUS of cervix with negative high risk HPV: COMMENT: repeat pap as indicated (3) : QUALIFIERS: Weeks of gestation: 38 weeks Qualified Code(s): Z3A.38 - 38 weeks gestation of COMMENT: declines carrier, low risk, declined afp. NL ANATOMY. GBS neg (4) Supervision of other normal : COMMENT: PRR ELEN 09/28/21 girl Maureen PC: Riky Spouse: Elvin (5) Rh negative status during : QUALIFIERS: Trimester: first trimester Qualified Code(s): O26.891 - Other specified related conditions, first trimester; Z67.91 - Unspecified blood type, Rh negative COMMENT: B neg; Rhogam PRN, 28 weeks and PP rhogam 07/07/21 (6) Gestational diabetes mellitus (GDM): QUALIFIERS: Gestational diabetes mellitus control: insulin-controlled Trimester: third trimester Qualified Code(s): O24.414 - Gestational diabetes mellitus in , insulin controlled COMMENT: BS q 4 hr in latent phase, q 1 hr in active phase. insulin controlled, sees endocrine. 2x weekly NSTs and growth US q 4 weeks. (7) UTI in : COMMENT: Rx macrobid (8) Encounter for induction of labor: COMMENT: Pit IOL, Epi PRN, AROM PRN
[2021-09-21 07:58] LABS: Absolute Lymphocyte Count 1.79 X10^3/uL (0.83-4.51); Absolute Neutrophil Count 6.5 X10^3/uL (2.0-7.7); Basophil# 0.04 X10^3/uL; Basophil% 0.4 % (0-1); Eosinophils% 1.1 % (0-5); Hematocrit 35.5 % (37-47); Hemoglobin 11.8 g/dL (12.0-15.0); Lymphocyte # 1.79 X10^3/ul (0.83-4.51); Lymphocyte % 19.7 % (19-41); Mean Corp Hgb Conc 33.2 g/dL (32-36); Mean Corpuscular Hgb 29.1 pg (27.0-32.0); Mean Corpuscular Volume 87.4 fL (81-99); Monocyte# 0.66 X10^3/uL; Monocyte% 7.3 % (0-10); NRBC Flagged by Analyzer 0 % (0-5); Neutrophil # 6.48 X10^3/uL (2.7-7.7); Neutrophil % 71.2 % (47-70); Platelet Count 175 K/mm3 (150-450); RBC Distribution Width CV 13.6 % (11.6-14.6); RBC Distribution Width SD 42.8 fl (35.1-43.9); Red Blood Count 4.06 M/mm3 (4.2-5.4); White Blood Count 9.1 K/mm3 (4.4-11.0)
[2021-09-21] MEDS: Lactated Ringers 1,000 ML 50 ML IV (08:02)
[2021-09-21] MEDS: Oxytocin 30 units/NS 500 ml 30 UNITS/500 ML IV.SOLN IV (08:02)
[2021-09-21 08:51] LABS: Bedside Glucose 94 mg/dL (70-110)
[2021-09-21] MEDS: 0.9% Normal Saline Single 100 ML IV.SOLN. INTRA-UTER (09:15)
[2021-09-21 09:55] LABS: Bedside Glucose 85 mg/dL (70-110)
[2021-09-21] MEDS: Lactated Ringers 500 ML 999 ML IV (11:33)
[2021-09-21] MEDS: fentaNYL-bupivacaine (epidural) 100 ML BAG EPIDURAL (13:00)
[2021-09-21 14:01] LABS: Bedside Glucose 79 mg/dL (70-110)
[2021-09-21 15:01] LABS: Bedside Glucose 76 mg/dL (70-110)
[2021-09-21 16:01] LABS: Bedside Glucose 74 mg/dL (70-110)
[2021-09-21] MEDS: Lactated Ringers 1,000 ML 200 ML IV (16:22)
[2021-09-21] MEDS: Ondansetron 4 MG/2 ML Vial IV (16:25)
[2021-09-21 16:50] LABS: Bedside Glucose 68 mg/dL (70-110)
[2021-09-21] MEDS: Oxytocin 30 units/NS 500 ml 30 UNITS/500 ML IV.SOLN 334 UNITS IV (17:23)
--- NOTE | 2021-09-21 17:31 | EX.PCM.OBRPT ---
Assessment & Plan (1) ASCUS of cervix with negative high risk HPV: COMMENT: repeat pap as indicated (2) : QUALIFIERS: Weeks of gestation: 38 weeks Qualified Code(s): Z3A.38 - 38 weeks gestation of COMMENT: declines carrier, low risk, declined afp. NL ANATOMY. GBS neg (3) Supervision of other normal : COMMENT: PRR ELEN 09/28/21 girl Maureen PC: Shericekatelyn Spouse: Elvin (4) Rh negative status during : QUALIFIERS: Trimester: first trimester Qualified Code(s): O26.891 - Other specified related conditions, first trimester; Z67.91 - Unspecified blood type, Rh negative COMMENT: B neg; Rhogam PRN, 28 weeks and PP rhogam 07/07/21 (5) Gestational diabetes mellitus (GDM): QUALIFIERS: Gestational diabetes mellitus control: insulin-controlled Trimester: third trimester Qualified Code(s): O24.414 - Gestational diabetes mellitus in , insulin controlled COMMENT: BS q 4 hr in latent phase, q 1 hr in active phase. insulin controlled, sees endocrine. 2x weekly NSTs and growth US q 4 weeks. (6) UTI in : COMMENT: Rx macrobid (7) Encounter for induction of labor: COMMENT: Pit IOL, Epi PRN, AROM PRN (8) Genital HSV: QUALIFIERS: Herpes simplex infection site: unspecified Qualified Code(s): A60.00 - Herpesviral infection of urogenital system, unspecified COMMENT: no outbreaks >1 yr; needs Valtrex starting at 36 weeks (9) Vaginal delivery: COMMENT: IOL gdma2 39 SM Maternal Data Information ELEN Calculator Estimated Delivery Date Method Current WG Current Estimate 09/28/21 Ultrasound #1 39w 1d Other Estimates 08/03/21 LMP (Uncertain) 47w 1d Vaginal Delivery Operative Information Date of Procedure: 09/21/21 Pre-Operative Diagnosis: iol gdma2 Post-Operative Diagnosis: same Surgery / Procedure Performed: Spontaneous Vaginal Delivery Type of Anesthesia: Epidural Special Medications: none Estimated Blood Loss: 200 Fluids Replaced: crystalloid Findings Description of Procedure: Patient began pushing and delivered the head in the PETRA presentation. The head was delivered atraumatically . The anterior and posterior shoulders delivered without complication followed by the rest of the infant and the infant was placed on the maternal abdomen. Delayed cord clamping was employed for approximately 60 seconds. Cord was clamped and cut and gentle traction was applied to the cord and the placenta delivered spontaneously immediately following it was noted to be intact with three-vessel cord. The perineum and vagina were inspected and noted to have no laceration. EBL was 200. Patient and infant tolerated delivery well. Presentation: PETRA Amniotic Membrane Rupture Type: Artificial Amniotic Fluid Description: Clear Placental Delivery Description: Spontaneous Placenta Disposition: [facility] Cord Vessel Description: 3 Vessels Cord Entanglement: None Delayed Cord Clamping: Yes Post Vaginal Delivery Medications Given After Delivery: IV Pitocin Episiotomy Description: None Laceration: None Complication Complications: None Procedures Urinary/Genital [id number]: [id number] Vaginal Delivery [facility]
[2021-09-21 18:41] LABS: Bedside Glucose 93 mg/dL (70-110)
[2021-09-21] MEDS: 0.9% Saline Lock 10 ML Syringe IV (19:58)
--- NOTE | 2021-09-21 21:32 | NURSING ---
Report received from Enid CROWLEY, taking over pt and care at this time.
--- NOTE | 2021-09-21 21:32 | NURSING ---
report given to Orestes Watson RN who is assuming care of pt at this time
[2021-09-22 03:10] VITALS: BP 98/59; PULSE 84; RESP 18; TEMP 36.6
--- NOTE | 2021-09-22 03:30 | NURSING ---
Report given to Ana CROWLEY, taking over pt care at this time.
[2021-09-22 05:51] LABS: Bedside Glucose 95 mg/dL (70-110)
--- NOTE | 2021-09-22 06:47 | PCM.DC ---
Discharge Instructions Diet Discharge Diet: No restrictions Activity Discharge Activity: Return to Normal Activity, May Not Drive (while taking narcotic pain medications.) and May Shower May resume sexual activity in: 4-6 weeks Dressing / Incision Call your doctor if your incision/area has: Continuous Slow Oozing, Sudden Increased Bleeding, Increased Pain/ Swelling, Increased Redness and Foul Smelling Discharge Follow Up Care Please Follow Up With: Tahira Vasquez MD When: Call [phone] to make an appointment with your doctor in 6 weeks. If you had elevated blood pressure or 4th degree laceration, you will need to be seen in 2 weeks. Test Results: Test results from this visit will be discussed in further detail at your follow-up appointment, if applicable. Discharge Plan Admission Admit Date/Time: 09/21/21 06:50 Primary Reason for Your Visit: vaginal delivery Attending Provider: Tahira Vasquez Primary Care Provider: Da Link Discharge Orders/Prescriptions Prescriptions: No Action PNV-DHA 27 mg iron-1 mg -300 mg capsule 1 cap PO DAILY RF: 0 Tresiba FlexTouch U-100 100 unit/mL (3 mL) insulin pen 10 unit subcut DAILY RF: 0 citalopram 40 MG tablet 40 mg PO DAILY RF: 0 acyclovir 400 mg tablet 400 mg PO BID RF: 0 mometasone 0.1 % ointment 1 applic topical DAILY RF: 0 Referrals / Follow Up: Da Link [Primary Care Provider] - Disposition Disposition (needs filled in before D/C Order can be placed): Home, Self Care
--- NOTE | 2021-09-22 07:46 | PN.OBGYN_ITS ---
Subjective Subjective Patient doing well without complaints. Tolerating PO. Ambulating and voiding without difficulty. Feeding well. Denies chest pain, shortness of breath, calf pain/swelling, fevers, chills, lightheadedness. Objective Data Objective Data Vital Signs: Vital Signs Temp Pulse Resp BP Pulse Ox 97.9 F 84 18 98/59 L 96 09/22/21 03:10 09/22/21 03:10 09/22/21 03:10 09/22/21 03:10 09/21/21 19:31 Oxygen Delivery Method Room Air Weight: 162 lb 0.2 oz Body Mass Index (BMI) 29.6 Intake & Output: Intake and Output for Last 24 Hours 09/20/21 09/21/21 09/22/21 23:59 23:59 23:59 Intake Total 3012.43 / 3012.43 Output Total 1650 / 1650 Balance 1362.43 / 1362.43 Lab / Micro Data Result Diagrams: 09/21/21 07:30 Labs: Laboratory Results - last 24 hr 09/21/21 07:30: WBC 9.1, RBC 4.06 L, Hgb 11.8 L, Hct 35.5 L, MCV 87.4, MCH 29.1, MCHC 33.2, RDW Std Deviation 42.8, RDW Coeff of Chacha 13.6, Plt Count 175, MPV 11.0, Immature Gran % (Auto) 0.300, Neut % (Auto) 71.2 H, Lymph % (Auto) 19.7, Burnet % (Auto) 7.3, Eos % (Auto) 1.1, Baso % (Auto) 0.4, Absolute Neuts (auto) 6.5, Absolute Lymphs (auto) 1.79, Nucleated RBC % 0 09/21/21 07:30: Blood Type B NEGATIVE, Antibody Screen NEGATIVE 09/21/21 08:44: POC Glucose 94 09/21/21 09:41: POC Glucose 85 09/21/21 13:46: POC Glucose 79 09/21/21 14:47: POC Glucose 76 09/21/21 15:51: POC Glucose 74 09/21/21 16:44: POC Glucose 68 L 09/21/21 18:35: POC Glucose 93 09/21/21 20:50: Screen NEGATIVE, Baby's Blood Type B POSITIVE, Baby's NELSON NEGATIVE 09/22/21 05:42: POC Glucose 95 Micro: Microbiology 09/21/21 08:00 Nasal Secretion SARS-CoV-2 Antigen (Rapid) - Final Physical Exam Const alert and oriented x3 HEENT normocephalic Eyes PERRL Neck full ROM Resp normal respiratory effort GI soft to palpation GI Narrative: FF below U Assessment & Plan (1) Vaginal delivery: COMMENT: IOL gdma2 39 SM (2) Rh negative status during : QUALIFIERS: Trimester: first trimester Qualified Code(s): O26.891 - Other specified related conditions, first trimester; Z67.91 - Unspecified blood type, Rh negative COMMENT: B neg; Rhogam PRN, 28 weeks and PP rhogam 07/07/21 (3) Gestational diabetes mellitus (GDM): QUALIFIERS: Gestational diabetes mellitus control: insulin- controlled Trimester: third trimester Qualified Code(s): O24.414 - Gestational diabetes mellitus in , insulin controlled COMMENT: BS q 4 hr in latent phase, q 1 hr in active phase. insulin controlled, sees endocrine. 2x weekly NSTs and growth US q 4 weeks. PLAN: s/p PPD # 1 1. routine post delivery care 2. breast feeding- support given 3. rh negative 4. rubella immune 5. glucose wnl 6. plans home today
[2021-09-22 09:20] VITALS: BP 100/57; PULSE 78; RESP 16; TEMP 37
[2021-09-22 14:15] VITALS: BP 108/65; PULSE 85; RESP 16; TEMP 36.2
[2021-09-22] MEDS: Naproxen 500 MG Tablet PO (17:25)
[2021-09-22 18:58] VITALS: BP 108/75; PULSE 87; RESP 16; TEMP 36.9
== END 2021-09-22 19:30 | disposition home or self-care (01) | DRG 807 ==
PROVIDERS: Admitting Provider Obstetrics & Gynecology; PCP Family Medicine; Referring Provider Obstetrics & Gynecology; Visit Provider Obstetrics & Gynecology
DX: O24.424 Gestational diabetes mellitus in childbirth, insulin controlled (principal); Z37.0 Single live birth; Z67.91 Unspecified blood type, Rh negative; O99.284 Endocrine, nutritional and metabolic diseases complicating childbirth; E28.2 Polycystic ovarian syndrome; Z91.013 Allergy to seafood; Z88.1 Allergy status to other antibiotic agents; Z3A.38 38 weeks gestation of pregnancy; Z86.16 Personal history of COVID-19
CPT/HCPCS: 59025; 59050; 82962; 85025; 85461; 86850; 86900; 86901; 87426; 90384; 99218; J7120; A4216; G0378; J2405; J2790

== ENCOUNTER 2021-11-25 16:48 | Outpatient (CLI) | payer OTHER, SELFPAY | END 2021-11-25 23:59 | disposition short-term general hospital (02) | LOC: LAB 16:49 | PROVIDERS: PCP Family Medicine; Visit Provider Obstetrics & Gynecology | DX: N61.0 Mastitis without abscess (principal) | CPT/HCPCS: 87070; 87205 ==

== ENCOUNTER 2021-11-27 08:15 | Outpatient (CLI) | payer OTHER, SELFPAY ==
--- NOTE | 2021-11-27 08:17 | US_ITS ---
STUDY: ULTRASOUND BREAST - RIGHT REASON FOR EXAM: Female, 31 years old. History of mastitis. Skin erythema. TECHNIQUE: Axial and longitudinal images of the RIGHT breast were performed with a high resolution ultrasound transducer. # OF IMAGES: 24 COMPARISON: None. FINDINGS: RIGHT Breast: The medial aspect of the right breast was examined by ultrasound. No sonographic abnormality is seen. US/Breast Limited Unilateral IMPRESSION: No sonographic abnormality is seen. ASSESSMENT CATEGORY: BIRADS Category 1: Negative. A letter regarding these results will be sent to the patient by the facility within 30 days. Electronically Signed: Pierce Woodard MD at 10:58 EST ,
== END 2021-11-27 23:59 | disposition short-term general hospital (02) ==
LOC: OPUS 08:16
PROVIDERS: PCP Family Medicine; Referring Provider Obstetrics & Gynecology; Visit Provider Obstetrics & Gynecology
DX: N61.0 Mastitis without abscess (principal)
CPT/HCPCS: 76642

== ENCOUNTER → 2022-11-12 | Outpatient (CLI) | payer OTHER, SELFPAY ==
[2022-11-12 12:48] LABS: Hemoglobin A1c 4.9 % (3.8-5.6)
[2022-11-12 13:27] LABS: ALB/GLOB Ratio 1.2 RATIO (0.9-2.4); AST(SGOT) 12 U/L (15-37); Alanine Aminotransfer ALT/SGPT 21 U/L (13-56); Albumin, Serum 4.1 g/dL (3.2-5.0); Alkaline Phosphatase 93 U/L (45-117); Anion Gap 5 (5-15); BUN 14 mg/dL (7-18); BUN/Creat Ratio 22.5 RATIO (10-20); Calcium,Total 9.4 mg/dL (8.5-10.1); Chloride 105 mmol/L (98-107); Creatinine, Serum 0.62 mg/dL (0.55-1.02); EST Glomerular Filtration Rate 116 mL/min (>60); Est Glom Filt Rate - Afr Amer 141 mL/min (>60); Globulin 3.3 g/dL (2.2-4.2); Glucose 96 mg/dL (74-106); Protein, Total 7.4 g/dL (6.4-8.2); Sodium Level 138 mmol/L (136-145)
== END | disposition home or self-care (01) ==
LOC: BFHLAB 10:51
PROVIDERS: PCP Family Medicine; Visit Provider Family Medicine
DX: Z00.00 Encounter for general adult medical examination without abnormal findings (principal); E28.2 Polycystic ovarian syndrome
CPT/HCPCS: 36415; 80053; 83036

== ENCOUNTER → 2023-08-25 | Outpatient (CLI) | payer OTHER, SELFPAY ==
[2023-08-29 18:07] LABS: Deamidated Gliadin IgA 4 units (0-19); Deamidated Gliadin IgG 1 units (0-19); Endomysial Antibody IgA Negative (Negative); G6PD Quant Test 229 (127-427); Red Blood Cell Count Test/G6PD 5.14 x10E6/uL (3.77-5.28)
== END | disposition home or self-care (01) ==
PROVIDERS: PCP Family Medicine
DX: R21 Rash and other nonspecific skin eruption (principal)
CPT/HCPCS: 82955; 83516; 86255

== ENCOUNTER → 2023-10-12 | Outpatient (CLI) | payer OTHER, SELFPAY ==
[2023-10-12 18:01] LABS: Hematocrit 40.1 % (37-47); Hemoglobin 13.1 g/dL (12.0-15.0); Mean Corp Hgb Conc 32.7 g/dL (32-36); Mean Corpuscular Hgb 30.7 pg (27.0-32.0); Mean Corpuscular Volume 93.9 fL (81-99); Mean Platelet Vol. 9.9 fl (6.2-12.0); Platelet Count 230 K/mm3 (150-450); RBC Distribution Width CV 13.4 % (11.6-14.6); RBC Distribution Width SD 46.1 fl (35.1-43.9); Red Blood Count 4.27 M/mm3 (4.2-5.4); White Blood Count 7.3 K/mm3 (4.4-11.0)
[2023-10-12 18:20] LABS: ALB/GLOB Ratio 1.1 RATIO (0.9-2.4); AST(SGOT) 10 U/L (15-37); Alanine Aminotransfer ALT/SGPT 20 U/L (13-56); Albumin, Serum 3.9 g/dL (3.2-5.0); Alkaline Phosphatase 81 U/L (45-117); Anion Gap 3 (5-15); BUN 18 mg/dL (7-18); BUN/Creat Ratio 20.2 RATIO (10-20); Chloride 108 mmol/L (98-107); Creatinine, Serum 0.89 mg/dL (0.55-1.02); EST Glomerular Filtration Rate 76 mL/min (>60); Est Glom Filt Rate - Afr Amer 92 mL/min (>60); Globulin 3.5 g/dL (2.2-4.2); Glucose 92 mg/dL (74-106); Protein, Total 7.4 g/dL (6.4-8.2); Sodium Level 137 mmol/L (136-145)
== END | disposition home or self-care (01) ==
PROVIDERS: PCP Family Medicine
DX: L13.1 Subcorneal pustular dermatitis (principal); Z79.899 Other long term (current) drug therapy
CPT/HCPCS: 80053; 85027

== ENCOUNTER → 2024-02-10 | Outpatient (CLI) | payer OTHER, SELFPAY ==
[2024-02-15 11:09] LABS: HPV APTIMA, High Risk Negative (Negative)
== END | disposition home or self-care (01) ==
PROVIDERS: PCP Family Medicine; Referring Provider Advanced Practice Midwife; Visit Provider Advanced Practice Midwife
DX: Z12.4 Encounter for screening for malignant neoplasm of cervix (principal)
CPT/HCPCS: 87624; 88175; G0145

== ENCOUNTER → 2024-07-30 | Outpatient (CLI) | payer OTHER, SELFPAY | END | disposition home or self-care (01) | PROVIDERS: PCP Family Medicine; Referring Provider Advanced Practice Midwife; Visit Provider Advanced Practice Midwife | DX: N91.2 Amenorrhea, unspecified (principal) | CPT/HCPCS: 36415; 84443 ==

== ENCOUNTER → 2024-08-07 | Outpatient (CLI) | payer OTHER, SELFPAY ==
--- NOTE | 2024-08-07 09:21 | US_ITS ---
INDICATION: amenorrhea EXAMINATION: Ultrasound US Pelvis Non OB Limited With Transvaginal Imaging TECHNIQUE: Transvaginal (for optimal evaluation of the adnexa) pelvic ultrasound was performed. Grayscale, spectral waveform, and color flow Doppler evaluation of the adnexa. COMPARISON: No relevant prior comparison study available FINDINGS: UTERUS: Anteverted. The uterus measures 7.7 x 4.6 x 3.7 cm. There is no uterine mass. There is small nabothian cyst in the cervix. The endometrial stripe measures 6 mm in AP diameter which is within normal limits. RIGHT OVARY: 3.7 x 3.8 x 2.7 cm. Multiple small follicles are seen with string of joya appearance. There is normal arterial inflow and venous outflow present in the right ovary. LEFT OVARY: 4 x 3.6 x 2.5 cm. Multiple follicles are seen. There is normal arterial inflow and venous outflow present in the left ovary. FREE FLUID: None. US/Transvaginal Non- IMPRESSION: 1. Multiple follicles bilaterally which may reflect polycystic ovary syndrome. 2. Nabothian cyst in the cervix. Electronically Signed: Bill De La Cruz MD at 16:01 EDT ,
== END | disposition home or self-care (01) ==
PROVIDERS: PCP Family Medicine; Referring Provider Advanced Practice Midwife; Visit Provider Advanced Practice Midwife
DX: N91.2 Amenorrhea, unspecified (principal)
CPT/HCPCS: 76830

== ENCOUNTER → 2025-05-29 | Outpatient (CLI) | payer OTHER, SELFPAY ==
[2025-05-29 12:32] LABS: Hematocrit 41.0 % (37-47); Hemoglobin 14.0 g/dL (12.0-15.0); Immature Granulocytes Count 0.010 X10^3/uL (0.0-0.0); Mean Corp Hgb Conc 34.1 g/dL (32-36); Mean Corpuscular Volume 86.7 fL (81-99); Mean Platelet Vol. 10.6 fl (6.2-12.0); NRBC Flagged by Analyzer 0 % (0-5); Platelet Count 232 K/mm3 (150-450); RBC Distribution Width CV 12.5 % (11.6-14.6); RBC Distribution Width SD 39.6 fl (35.1-43.9); Red Blood Count 4.73 M/mm3 (4.2-5.4); White Blood Count 5.5 K/mm3 (4.4-11.0)
[2025-05-29 12:36] LABS: Internal QC Validated? YES +Cl - CLEAR BKGD; Pregnancy, Serum, hCG Quali. NEGATIVE Negative; Record Kit Lot#, Serum Preg. 0000962302
[2025-05-29 13:34] LABS: AST(SGOT) 19 U/L (<=31); Alanine Aminotransfer ALT/SGPT 15 U/L (<=34); Albumin, Serum 4.5 g/dL (3.5-5.0); Alkaline Phosphatase 74 U/L (35-104); Anion Gap 13 (5-15); BUN 10 mg/dL (4-19); BUN/Creat Ratio 12.3 RATIO (10-20); Calcium,Total 9.5 mg/dL (7.6-11.0); Carbon Dioxide 23.3 mmol/L (21.0-32.0); Chloride 103 mmol/L (98-108); Cholesterol 209 mg/dL (<=200); Globulin 2.6 g/dL (2.2-4.2); Glucose 80 mg/dL (70-99); Low Density Lipoprotein Calc. 132 mg/dL; Potassium 4.0 mmol/L (3.3-5.1); Triglycerides 65 mg/dL; Very Low Density Lipoprotein 13 mg/dL (5-40); Vitamin B12 424 pg/mL (180-914); Vitamin D,25 Hydroxy 29.2 ng/mL (30-100); cholesterol:hdl ratio screen 3.24
== END | disposition home or self-care (01) ==
LOC: VSLAB 09:35
PROVIDERS: PCP Nurse Practitioner Family; Visit Provider Nurse Practitioner Family
DX: E28.2 Polycystic ovarian syndrome (principal); F41.8 Other specified anxiety disorders
CPT/HCPCS: 36415; 80053; 80061; 82306; 82607; 84443; 84703; 85025; 86376; 86800